=== PATIENT | female | born 1935 | race Two or more races ===

== ENCOUNTER 2020-11-30 03:34 | Inpatient (IN) | payer MEDICARE, SELFPAY ==
[2020-11-30] VITALS (11 sets, daily range): BP systolic 139–170; BP diastolic 53–78; PULSE 57–67; RESP 16–20; TEMP 36.5–36.9; O2SAT 94–100; BMI 25.0
--- NOTE | 2020-11-30 03:35 | ECHOD_ITS ---
Reason For Study: CHF Procedure This was a 2D Doppler, Color Flow transthoracic echocardiogram. Exam performed portable in patient room. Left Ventricle Normal LV size. Left ventricular systolic function is lower limits of normal. The estimated ejection fraction is 45 %. There is mild global hypokinesis of the left ventricle. Right Ventricle Normal RV size. Normal systolic function. Atria The left atrium is moderately enlarged. Normal right atrium. Mitral Valve Bileaflet diffuse mitral valve thickening. Mild (1+) eccentric mitral valve insufficiency. Tricuspid Valve Normal tricuspid valve. Mild to moderate (1-2+) tricuspid valve insufficiency. Pulmonary artery systolic pressure is 54 mmHg. Moderate pulmonary hypertension. Aortic Valve Trisinus/trileaflet aortic valve. Great Vessels Calcified aortic root. The pulmonary artery is normal size. Normal inferior vena cava. Pericardium/Pleural No pericardial effusion. Large left pleural effusion. MMode/2D Measurements & Calculations LVIDd: 4.3 cm IVSd: 1.3 cm LA dimension: 3.7 cm LVIDs: 3.1 cm LVPWd: 1.1 cm FS: 28.3 % LAV(MOD-bp): 87.1 ml LA A4 area: 25.8 cm2 RA A4 area: 14.0 cm2 LAV(MOD-bp) Indexed: 57.9 ml/m2 LAV(MOD-sp2): 85.5 ml LAV(MOD-sp4): 88.9 ml Time Measurements MV dec time: 0.24 sec Doppler Measurements & Calculations MV E max jessee: 132.7 cm/sec Med Peak E' Jessee: 5.4 cm/sec MV V2 max: 141.6 cm/sec MV A max jessee: 119.2 cm/sec E/E' med: 24.8 MV max P.0 mmHg MV E/A: 1.1 MV V2 mean: 76.8 cm/sec MV mean P.7 mmHg MV V2 VTI: 47.4 cm MV P1/2t max jessee: 143.5 cm/sec Ao V2 max: 138.0 cm/sec LV V1 max: 92.7 cm/sec MV P1/2t: 73.7 msec Ao max P.6 mmHg LV V1 max P.4 mmHg MV dec slope: 570.1 cm/sec2 MVA(P1/2t): 3.0 cm2 PA V2 max: 82.8 cm/sec TR max jessee: 346.3 cm/sec TR max P.0 mmHg ECHO/Echo Complete Interpretation Summary Normal LV size. Left ventricular systolic function is lower limits of normal. The estimated ejection fraction is 45 %. Mild (1+) eccentric mitral valve insufficiency. Mild to moderate (1-2+) tricuspid valve insufficiency. Pulmonary artery systolic pressure is 54 mmHg. Moderate pulmonary hypertension. Large left pleural effusion. Ordering Physician: Hortencia Azar Referring Physician: Sofya PCP Noted Performed By: Andrzej Farfan RCS
--- NOTE | 2020-11-30 04:00 | HP.PCM.HOS_ITS ---
HPI - General General Date of Admission: 11/30/20 Date of Service: 11/30/20 Chief Complaint: Dyspnea, worse with exertion, orthopnea. HPI Narrative The patient is a 85 y/o F w/ PMHx: Diabetes mellitus type II, HTN, HLD, ESRD on chronic peritoneal dialysis, Chronic anemia/AOCD, Hx AVM w/ GI bleed who was initially seen at [facility] ED on 11/30/20 prior to transfer to the [facility] as a direct admission on 11/30/20 as no bed availability in their region with history of ongoing progressively worsening dyspnea, worse with exertion with notable orthopnea over the last several days in addition to history of recent loose stools over the last several days without any fever or chills and no URI type symptoms. The stool was normal in appearance. [facility] at their facility was contacted per ED and recommended transfer with need for ECHO (Dr. Martinez) and possible cardiac catheterization pending enzyme trending. Upon [facility] arrival patient notes feeling improved with lessened dyspnea. She denies any associated chest pain with her recent exertional dyspnea. Patient evaluation at their ED included: VS: BP 134/93, HR 66, T 36.7, RR 24, 93% on RA CBC: WBC 8.3, Hgb 10.6, Plts 324 with unremarkable differential COVID testing: Negative BMP: Na 143, K 2.6, BUN/Cr 38/4.6 BNP: 16,974 Trop HS: 139 CXR: Moderate R pleural effusion, small L pleural effusion, evidence vascular congestion EKG: SR rate 65 with diffuse T wave flattening without acute evidence of ischemia Medications administered in the ED included: ASA 324 mg x 1, Potassium Chl 40 po and 40 IV, Lasix 40 mg IV. [facility] Medical History (Updated 11/30/20 @ 04:[address] Hortencia Azar MD) AVM (arteriovenous malformation) Chronic anemia Diabetes mellitus, type 2 ESRD (end stage renal disease) on dialysis Former tobacco use History of GI bleed HLD (hyperlipidemia) HTN (hypertension) Peritoneal dialysis catheter in place Home Medications B complex-vitamin C-folic acid [Holly-Danny] 1 tab PO DAILY 11/30/20 [History Last Taken Unknown] Lipitor 40 mg PO/SL DAILY 11/30/20 [History Last Taken Unknown] Toujeo SoloStar U-300 Insulin 14 units DAILY 11/30/20 [History Last Taken Unknown] amlodipine 5 mg PO DAILY 11/30/20 [History Last Taken Unknown] calcitriol 0.25 mcg PO DAILY 11/30/20 [History Last Taken Unknown] cholecalciferol (vitamin D3) [Vitamin D3] 25 mcg PO DAILY 11/30/20 [History Last Taken Unknown] ferrous sulfate 325 mg PO/SL TID 11/30/20 [History Last Taken Unknown] nifedipine 60 mg PO/SL DAILY 11/30/20 [History Last Taken Unknown] quinapril 40 mg PO/SL DAILY 11/30/20 [History Last Taken Unknown] sodium bicarbonate 1,300 mg PO BID 11/30/20 [History Last Taken Unknown] spironolactone 50 mg PO DAILY 11/30/20 [History Last Taken Unknown] torsemide 10 mg PO DAILY 11/30/20 [History Last Taken Unknown] Allergy/AdvReac Type Severity Reaction Status Date / Time metformin AdvReac Unknown needs Verified 11/30/20 03:34 follow-up Family History (Updated 11/30/20 @ 04:[address] Hortencia Azar MD) Mother CKD (chronic kidney disease) Father Hypertension Heart disease Surgical History (Updated 11/30/20 @ 04:[address] Hortencia Azar MD) S/P bilateral foot surgery Social History (Updated 11/30/20 @ 04:[address] Hortencia Azar MD) housing: other details: Patient lives with her daughter who is a manager international. Smoking Status: Former smoker how long ago did patient quit smoking: Quit 1982, smoked from [employer] until then, 1 ppd. alcohol intake: never substance use type: does not use ROS ROS Narrative Admission Review of Systems: CONSTITUTIONAL: No weight loss, fever, chills, + weakness or fatigue. HEENT: Eyes: No visual loss, blurred vision, double vision or yellow sclerae. Ears, Nose, Throat: No hearing loss, sneezing, congestion, runny nose or sore throat. SKIN: No rash or itching, lesions, wounds. CARDIOVASCULAR: + Orthopnea, no chest pain, chest pressure or chest discomfort, palpitations, edema, syncopal events. RESPIRATORY: + shortness of breath, No cough or sputum, wheezing, hemoptysis. GASTROINTESTINAL: + diarrhea, No anorexia, nausea, vomiting, abdominal pain, melena, BRBPR. GENITOURINARY: No dysuria, frequency, urgency or retention. NEUROLOGICAL: No headache, dizziness, syncope, paralysis, ataxia, numbness or tingling in the extremities, focal weakness, change in bowel or bladder control, seizure. MUSCULOSKELETAL: No muscle, back pain, joint pain or stiffness. HEMATOLOGIC: + anemia, bleeding or bruising. LYMPHATICS: No enlarged nodes. No history of splenectomy. PSYCHIATRIC: No history of depression or anxiety. ENDOCRINOLOGIC: No reports of sweating, cold or heat intolerance. No polyuria or polydipsia. ALLERGIES: No history of asthma, hives, eczema or rhinitis. Physical Exam Narrative Physical Examination: General: Awake, alert, oriented x 3 and cooperative, seated upright in the PCU bed in no apparent distress, notes feeling improved since initial outside ED evaluation. Skin: Normal color, normal turgor, no icterus, no cyanosis. HEENT: AT/NC, EOMI, PERRLA, MMM, no carotid bruits, + JVD noted. Lungs: Diminished, greater bases, right greater than left, mild rales bases, no obvious rhonchi or wheezing. Heart: Regular rate and rhythm; no gallop, rub audible, + SM. Abdomen: Soft, NTTP, ND, normal BS, no HSM. Extremities: No cyanosis, no clubbing, minimal bilateral ankle not markedly pitting edema. Neurological: Patient awake, alert, oriented as noted, cognitive function intact; pupils equally reactive to light and accommodation, cranial nerves II- XII grossly normal, moving all 4 extremities, no focal deficits, strength moderately global decrease secondary to acute presentation and complaints. Psychiatric: Affect appears mildly fatigued otherwise normal, no acute evidence of depressive or anxiety feelings. Assessment & Plan Assessment/Plan (1) CHF exacerbation: QUALIFIERS: Heart failure type: unspecified Qualified Code(s): I50.9 - Heart failure, unspecified (2) Elevated troponin: PLAN: The patient is a 85 y/o F w/ PMHx: Diabetes mellitus type II, HTN, HLD, ESRD on chronic peritoneal dialysis, Chronic anemia/AOCD, Hx AVM w/ GI bleed who was initially seen at [facility] ED on 11/30/20 prior to transfer to the [facility] as a direct admission on 11/30/20 as no bed availability in their region with history of ongoing progressively worsening dyspnea, worse with exertion with notable orthopnea over the last several days. 1. Acute Decompensated CHF, unclear type with elevated cardiac enzymes: Patient administered IV lasix in the ED prior to transfer, will admit as directed to PCU, maintain on cardiac telemetry obtain cardiac enzyme series, obtain serial EKGs, continue IV lasix diuresis, consult nephrology as patient is end-stage renal disease on PD, monitor I/Os, maintain on intake restriction, continue medical therapy, obtain TSH and magnesium level, obtain echocardiogram. Will monitor cardiac enzymes and if trend upward will transition to heparin drip. Pending further assessment and treatment may consider cardiology consultation. 2. Diarrhea, unclear etiology: Given CHF exacerbation will defer hydration, will obtain c diff, stool cx, will not start antibiotics at this time especially given afebrile status with no marked WC elevation or left shift, negative recent Covid testing at outside facility. If stool studies are negative will initiate antidiarrheal regimen. 3. ESRD: Patient with history of advanced renal disease on PD, will continue q HS PD (normally x 6 days per week) pending requested nephrology consultation with local flat ironer. Patient of note still does make urine per her report. 4. Hypertension: Continue home regimen including quinapril, nifedipine, adding low-dose beta-klarissa, IV Lasix as noted above, PRN hydralazine. 5. Hyperlipidemia: Continue home statin regimen. AM FLP. 6. Chronic anemia/AOCD/Fe Deficiency anemia: Recent reported hemoglobin at outside facility 10.6, stable per the report, will continue iron supplementation, trend CBC. 7. Diabetes mellitus type II: Hold oral home regimen, continue Toujeo, ADA diet, accu checks w/ ISS. 8. GERD, history of prior GI bleed with AVM: We will continue patient PPI. 9. DVT prophylaxis: SCDs, heparin however low threshold to transition to therapeutic regimen if enzymes trend upward. 10. CODE status: Patient does not have healthcare power of workers compensation defense attorney nor living will in place but has been discussing these items with her daughter and notes that it is their intention to have it set up. Discussed CODE status at length including difference between FULL code, DNR-CCA and DNR-CC status. Following discussions about the differences in these status, requested Full Code status. Advanced Care Planning Face to Face Time: 16 minutes. Charges/Coding Visit Charges Inpatient E&M: 98035 Init Hosp L3 Procedures Hospitalists Procedures: 56431 Advncd Care Plan 30 Min
--- NOTE | 2020-11-30 04:55 | PCS.PANDOC ---
PANDEMIC DOCUMENTATION INITIATED: Date: 10/19/2020 Time: 190
[2020-11-30 05:32] LABS: Troponin-I HS 62 pg/mL (3.0-54.0)
--- NOTE | 2020-11-30 06:21 | NURSING ---
Pts daughter Daniela given update on pt and aware that she is here at [facility].
[2020-11-30 06:50] LABS: Bedside Glucose 51 mg/dL (70-110)
[2020-11-30 07:06] LABS: Bedside Glucose 59 mg/dL (70-110)
[2020-11-30 07:17] LABS: Absolute Lymphocyte Count 1.16 X10^3/uL (0.83-4.51); Absolute Neutrophil Count 4.3 X10^3/uL (2.0-7.7); Basophil# 0.05 X10^3/uL; Basophil% 0.8 % (0-1); Eosinophil# 0.08 X10^3/uL; Eosinophils% 1.3 % (0-5); Hematocrit 28.1 % (37-47); Lymphocyte # 1.16 X10^3/ul (0.83-4.51); Lymphocyte % 18.9 % (19-41); Mean Corpuscular Hgb 27.8 pg (27.0-32.0); Mean Corpuscular Volume 86.7 fL (81-99); Mean Platelet Vol. 11.3 fl (6.2-12.0); Monocyte# 0.56 X10^3/uL; Monocyte% 9.1 % (0-10); NRBC Flagged by Analyzer 0 % (0-5); Neutrophil # 4.28 X10^3/uL (2.7-7.7); Neutrophil % 69.6 % (47-70); Platelet Count 273 K/mm3 (150-450); RBC Distribution Width CV 15.5 % (11.6-14.6); RBC Distribution Width SD 49.4 fl (35.1-43.9); Red Blood Count 3.24 M/mm3 (4.2-5.4); White Blood Count 6.2 K/mm3 (4.4-11.0)
[2020-11-30 07:56] LABS: Bedside Glucose 122 mg/dL (70-110)
[2020-11-30 07:59] LABS: Troponin-I HS 57 pg/mL (3.0-54.0)
[2020-11-30 08:28] LABS: ALB/GLOB Ratio 0.4 RATIO (0.9-2.4); AST(SGOT) 41 U/L (15-37); Alanine Aminotransfer ALT/SGPT 31 U/L (13-56); Albumin, Serum 1.7 g/dL (3.2-5.0); Alkaline Phosphatase 83 U/L (45-117); Anion Gap 10 (5-15); BUN 40 mg/dL (7-18); BUN/Creat Ratio 8.9 RATIO (10-20); Calcium,Total 7.6 mg/dL (8.5-10.1); Chloride 108 mmol/L (98-107); Cholesterol 133 mg/dL (200); Creatinine, Serum 4.47 mg/dL (0.55-1.02); EST Glomerular Filtration Rate 10 mL/min (>60); Est Glom Filt Rate - Afr Amer 12 mL/min (>60); Estimated Creatinine Clearance 8.46 ml/min; Globulin 4.5 g/dL (2.2-4.2); Glucose 58 mg/dL (74-106); High Density Lipoprotein 80 mg/dL; Magnesium 1.9 mg/dL (1.6-2.6); Potassium 2.5 mmol/L (3.5-5.1); Protein, Total 6.2 g/dL (6.4-8.2); Sodium Level 146 mmol/L (136-145); T4 Free Direct 1.08 ng/dL (0.76-1.46); Thyroid Stim Hormone (TSH) 6.72 uIU/mL (0.358-3.74); Triglycerides 99 mg/dL; Very Low Density Lipoprotein 20 mg/dL (5-40)
[2020-11-30] MEDS: 0.9% Saline Lock 10 ML Syringe IV ×2 (09:35→17:09)
[2020-11-30] MEDS: Spironolactone 50 MG Tablet PO (09:35)
[2020-11-30] MEDS: Ferrous Sulfate 325 MG Tablet PO (09:36)
[2020-11-30] MEDS: Heparin Injection (Vial) 5,000 UNIT/ML VIAL 5000 UNIT SC ×2 (09:36→20:35)
[2020-11-30] MEDS: Calcitriol 0.25 MCG Capsule PO (09:36)
[2020-11-30] MEDS: Vitamin B Comp W-C Capsule 1 CAP PO (09:36)
[2020-11-30] MEDS: NIFEdipine 60 MG Tablet PO (09:36)
[2020-11-30] MEDS: amLODIPine 5 MG Tablet PO (09:36)
[2020-11-30] MEDS: Furosemide 40 MG/4 ML Vial IV ×2 (09:36→17:09)
[2020-11-30] MEDS: Cholecalciferol (VIT D3) 25 MCG TABLET (1,000 UNITS) PO (09:36)
[2020-11-30] MEDS: Sodium Bicarbonate 650 MG Tablet 1300 MG PO (09:36)
[2020-11-30] MEDS: Carvedilol 3.125 MG TABLET PO ×2 (09:36→20:35)
[2020-11-30] MEDS: Lisinopril 40 MG Tablet PO (09:36)
[2020-11-30] MEDS: Aspirin E.C. 81 MG Tablet PO (09:42)
--- NOTE | 2020-11-30 10:30 | CASEMGMT ---
ASHUTOSH GOTTLIEB assessment: Face to Face with patient for initial transition planning/care coordination assessment. ASHUTOSH GOTTLIEB introduced self and role at [facility], pt voices understanding and consents to assessment. Pt is sitting up in bed in no distress. Pt is A/Ox4 and answers all questions appropriately. Care providers, pharmacy, and demographics verified/updated. Presentation: Pt was direct admit from [facility] for CHF exac, elev trop Admitting dx: CHF exac, elev trop PCP: Anna in [place] Specialists: del Prince in [place]; [place] Preferred Pharmacy: [facility] in [place] Insurance: AeR Prescription Benefit: AeMCR Living Will/HPOA: Pt states does not have LW/HPOA and declines AD info. LNOK: Daniela Cole, daughter Living Arrangements: Pt states lives with daughter, Daniela, on main level of 2 story home and states no concerns at home. Pt states is independent with ADL's. Transportation: Pt states daughter drives and states no transportation concerns. DME/HHC: Pt states has the following DME: cane, walker, grab bars, and shower chair. Pt states no need for any further DME. Pt states no hx of HHC or SNF. Pt states recently started in-home PD 6 nights/week and states her daughter assists with setting up PD. Pt states no concerns. Pt states no concerns with going home at time of discharge. Pt states is retired. Pt states does not smoke cigarettes or drink ETOH. Pt states no concerns with going home at time of discharge. CM to follow for any further discharge planning/needs. Advised pt to ask for CM if any further questions/concerns/needs arise, voices understanding. Pt Goal: Home Plan[place] ASHUTOSH GOTTLIEB
[2020-11-30] MEDS: Potassium Chloride Oral Tablet 20 MEQ 40 MEQ PO (10:37)
[2020-11-30 11:44] LABS: Troponin-I HS 55 pg/mL (3.0-54.0)
[2020-11-30 12:01] LABS: Bedside Glucose 161 mg/dL (70-110)
--- NOTE | 2020-11-30 12:01 | CON.PCM.RE_ITS ---
Assessment & Plan Assessment/Plan (1) ESRD (end stage renal disease) on dialysis: PLAN: on CCPD 5 days a week. New to dialysis since early October. Primary stationary fireman Steven Bravo at [place]. (2) CHF exacerbation: QUALIFIERS: Heart failure type: unspecified Qualified Code(s): I50.9 - Heart failure, unspecified PLAN: continue iv lasix, echo pending (3) Elevated troponin: PLAN: consider cardiology consult (4) HTN (hypertension), benign: PLAN: stable (5) DM2 (diabetes mellitus, type 2): PLAN: stable (6) Pleural effusion: PLAN: thoracentesis if needed (7) Hypokalemia: PLAN: replace as needed,stop sodium bicarbonate since bicarb level elevated at 28. (8) Anemia: PLAN: continue oral iron, hx GI bleed from AVM's HPI Consult Data Date of Consult: 11/30/20 HPI Narrative HPI Narrative: TATA SMITH, is a 85 F admitted for CHF. She was transferred from [facility] due to no bed availability there. Complains of dyspnea with exertion past several days. She denies nausea, vomiting but admits to diarrhea since she started dialysis. She started dialysis beginning of October 5 days a week with 1.8L fill volumes. COVID negative. Denied chest pain, fever or chills. She has orthopnea. She has improved leg edema. She has a history of anemia, GIB from AVMs in the past, DM2, HTN, HPL and ESRD suspect due to diabetes, hypertension. She underwent kidney biopsy 2 weeks ago, results unknown. She lives with her dtr in [place]. She denies history of heart dise ase or CHF in the past. no bpm architect. She is on diuretics at home. Her primary stationary fireman is Dr. Bravo at [place]. [facility] Medical History (Updated 11/30/20 @ 12:[address] Kamini Thomason DO) Anemia AVM (arteriovenous malformation) Chest pain Chronic anemia Diabetes Diabetes mellitus, type 2 Dialysis patient ESRD (end stage renal disease) on dialysis Former smoker Former tobacco use GERD (gastroesophageal reflux disease) History of GI bleed HLD (hyperlipidemia) HTN (hypertension) Hypertension Kidney disease Osteoporosis Wears hearing aid in both ears Home Medications B complex-vitamin C-folic acid [Holly-Danny] 1 tab PO DAILY 11/30/20 [History Last Taken Unknown] Lipitor 40 mg PO/SL DAILY 11/30/20 [History Last Taken Unknown] Bridgeruralph WattsoStar U-300 Insulin 14 units DAILY 11/30/20 [History Last Taken Unknown] amlodipine 5 mg PO DAILY 11/30/20 [History Last Taken Unknown] calcitriol 0.25 mcg PO DAILY 11/30/20 [History Last Taken Unknown] cholecalciferol (vitamin D3) [Vitamin D3] 25 mcg PO DAILY 11/30/20 [History Last Taken Unknown] ferrous sulfate 325 mg PO/SL TID 11/30/20 [History Last Taken Unknown] nifedipine 60 mg PO/SL DAILY 11/30/20 [History Last Taken Unknown] quinapril 40 mg PO/SL DAILY 11/30/20 [History Last Taken Unknown] sodium bicarbonate 1,300 mg PO BID 11/30/20 [History Last Taken Unknown] spironolactone 50 mg PO DAILY 11/30/20 [History Last Taken Unknown] torsemide 10 mg PO DAILY 11/30/20 [History Last Taken Unknown] Allergy/AdvReac Type Severity Reaction Status Date / Time metformin AdvReac Unknown needs Verified 11/30/20 03:34 follow-up Family History (Updated 11/30/20 @ 12:[address] Kamini Thomason DO) Mother CKD (chronic kidney disease) Father Hypertension Heart disease Other Diabetes Surgical History (Updated 11/30/20 @ 12:[address] Kamini Thomason DO) Peritoneal dialysis catheter in place S/P bilateral foot surgery Social History (Updated 11/30/20 @ 04:[address] Hortencia Azar MD) housing: other details: Patient lives with her daughter who is a district engineer. Smoking Status: Former smoker how long ago did patient quit smoking: Quit 1982, smoked from [employer] [place] then, 1 ppd. alcohol intake: never substance use type: does not use ROS Constitutional Constitutional: Reports weakness; Denies chills or fever(s) Eyes Eyes: Denies blurry vision ENT HEENT: Denies epistaxis Cardiovascular Cardiovascular: Reports dyspnea on exertion and leg edema; Denies chest pain or syncope Respiratory/Chest Respiratory/Chest: Reports dyspnea on exertion; Denies hemoptysis Gastrointestinal Gastrointestinal: Reports diarrhea, rectal bleeding and other Details: hx GI bleed ; Denies abdominal pain, anorexia, hematemesis, hematochezia, melena, nausea or vomiting Genitourinary Genitourinary: Denies difficulty urinating or dysuria Musculoskeletal Musculoskeletal: Denies abnormal gait Integumentary Integumentary: Denies rash Neurologic Neurologic: Reports weakness; Denies tremor(s) Psychiatric Psychiatric: Denies anxiety or depression Hematologic/Lymphatic Hematologic/Lymphatic: Reports anemia Physical Exam Const alert, oriented x3 and no apparent distress Resp Auscultation: crackles right (decreased bs on left) Cardio regular rate Cardio Narrative: murmur GI non-tender and non-distended GI Narrative: PD catheter Palpation: soft no CVA tenderness Skin no rashes or lesions noted and no wounds Neuro Sensorium / Orientation: awake and alert Psych cooperative Lab / Micro Data Result Diagrams: 11/30/20 06:50 11/30/20 06:50 Labs: Laboratory Results - last 24 hr 11/30/20 04:55: Troponin I High Sens 62 H 11/30/20 06:45: POC Glucose 51 L 11/30/20 06:50: WBC 6.2, RBC 3.24 L, Hgb 9.0 L, Hct 28.1 L, MCV 86.7, MCH 27.8, MCHC 32.0, RDW Std Deviation 49.4 H, RDW Coeff of Nuha 15.5 H, Plt Count 273, MPV 11.3, Immature Gran % (Auto) 0.300, Neut % (Auto) 69.6, Lymph % (Auto) 18.9 L, [place] % (Auto) 9.1, Eos % (Auto) 1.3, Baso % (Auto) 0.8, Absolute Neuts (auto) 4.3, Absolute Lymphs (auto) 1.16, Nucleated RBC % 0 11/30/20 06:50: Sodium 146 H, Potassium 2.5 L*, Chloride 108 H, Carbon Dioxide 28.0, Anion Gap 10, BUN 40 H, Creatinine 4.47 H, Estim Creat Clear Calc 8.46, Est GFR (MDRD) Af Amer 12 L, Est GFR (MDRD) Non-Af 10 L, BUN/Creatinine Ratio 8.9 L, Glucose 58 L, Calcium 7.6 L, Phosphorus 4.0, Magnesium 1.9, Total Bilirubin 0.40, AST 41 H, ALT 31, Alkaline Phosphatase 83, Total Protein 6.2 L, Albumin 1.7 L, Globulin 4.5 H, Albumin/Globulin Ratio 0.4 L, Triglycerides 99, Cholesterol 133, LDL Cholesterol 33, VLDL Cholesterol 20, HDL Cholesterol 80, TSH 6.72 H, Free T4 1.08 11/30/20 06:50: Troponin I High Sens 57 H 11/30/20 06:58: POC Glucose 59 L 11/30/20 07:52: POC Glucose 122 H 11/30/20 11:13: Troponin I High Sens 55 H
[2020-11-30] MEDS: Insulin Lispro 100 UNIT/ML INSULN.PEN SC (12:04)
--- NOTE | 2020-11-30 13:11 | PCM.PN.HOSP ---
Subjective Subjective Breathing well. Became more short of breath even at rest. Has been on PD since October. Objective Data Objective Data Vital Signs: Vital Signs Temp Pulse Resp BP Pulse Ox 36.5 C L 65 18 170/53 H 94 11/30/20 09:30 11/30/20 09:30 11/30/20 09:30 11/30/20 09:30 11/30/20 09:58 Oxygen Flow Rate (L/min) 2 Oxygen Delivery Method Nasal Cannula Weight: 56.2 kg Body Mass Index (BMI) 25.0 Intake & Output: Intake and Output for Last 24 Hours 11/28/20 11/29/20 11/30/20 23:59 23:59 23:59 Intake Total 50 / 50 Balance 50 / 50 Lab / Micro Data Result Diagrams: 11/30/20 06:50 11/30/20 06:50 Labs: Laboratory Results - last 24 hr 11/30/20 04:55: Troponin I High Sens 62 H 11/30/20 06:45: POC Glucose 51 L 11/30/20 06:50: WBC 6.2, RBC 3.24 L, Hgb 9.0 L, Hct 28.1 L, MCV 86.7, MCH 27.8, MCHC 32.0, RDW Std Deviation 49.4 H, RDW Coeff of Nuha 15.5 H, Plt Count 273, MPV 11.3, Immature Gran % (Auto) 0.300, Neut % (Auto) 69.6, Lymph % (Auto) 18.9 L, Kings % (Auto) 9.1, Eos % (Auto) 1.3, Baso % (Auto) 0.8, Absolute Neuts (auto) 4.3, Absolute Lymphs (auto) 1.16, Nucleated RBC % 0 11/30/20 06:50: Sodium 146 H, Potassium 2.5 L*, Chloride 108 H, Carbon Dioxide 28.0, Anion Gap 10, BUN 40 H, Creatinine 4.47 H, Estim Creat Clear Calc 8.46, Est GFR (MDRD) Af Amer 12 L, Est GFR (MDRD) Non-Af 10 L, BUN/Creatinine Ratio 8.9 L, Glucose 58 L, Calcium 7.6 L, Phosphorus 4.0, Magnesium 1.9, Total Bilirubin 0.40, AST 41 H, ALT 31, Alkaline Phosphatase 83, Total Protein 6.2 L, Albumin 1.7 L, Globulin 4.5 H, Albumin/Globulin Ratio 0.4 L, Triglycerides 99, Cholesterol 133, LDL Cholesterol 33, VLDL Cholesterol 20, HDL Cholesterol 80, TSH 6.72 H, Free T4 1.08 11/30/20 06:50: Troponin I High Sens 57 H 11/30/20 06:58: POC Glucose 59 L 11/30/20 07:52: POC Glucose 122 H 11/30/20 11:13: Troponin I High Sens 55 H 11/30/20 11:56: POC Glucose 161 H Radiography Diagnostic Testing: Radiology Impression Echocardiogram 11/30/20 03:35 Interpretation Summary Normal LV size. Left ventricular systolic function is lower limits of normal. The estimated ejection fraction is 45 %. Mild (1+) eccentric mitral valve insufficiency. Mild to moderate (1-2+) tricuspid valve insufficiency. Pulmonary artery systolic pressure is 54 mmHg. Moderate pulmonary hypertension. Large left pleural effusion. Ordering Physician: Hortencia Azar Referring Physician: No PCP Noted Performed By: Andrzej Farfan RCS Physical Exam Const alert Constitutional Narrative: on room air. no respiratory distress. no conversational dyspnea. Resp normal respiratory effort, no use of accessory muscles and clear to auscultation bilaterally Cardio Cardio Narrative: few crackles in bases. GI normal to inspection, nondistended, normoactive bowel sounds, soft to palpation, non-tender and non-distended Assessment & Plan Assessment/Plan (1) CHF exacerbation: QUALIFIERS: Heart failure type: unspecified Qualified Code(s): I50.9 - Heart failure, unspecified (2) Elevated troponin: PLAN: The patient is a 85 y/o F w/ PMHx: Diabetes mellitus type II, HTN, HLD, ESRD on chronic peritoneal dialysis, Chronic anemia/AOCD, Hx AVM w/ GI bleed who was initially seen at [facility] ED on 11/30/20 prior to transfer to the [facility] as a direct admission on 11/30/20 as no bed availability in their region with history of ongoing progressively worsening dyspnea, worse with exertion with notable orthopnea over the last several days. 1. Acute HFrEF EF 45% complicated by ESRD and moderate pulmonary HTN on IV furosemide continue lisinopril,carvedilol 2. Elevated troponin slightly elevated, but likely skewed by ESRD check records from [facility] and Dr. Martinez, her molasses feed mixer 3. ESRD on PD nephrology on consult 4. Diarrhea chronic intermittent no recent abx, so doubt Cdiff add loperamide 5. Hypokalemia replace monitor 6. Anemia of chronic disease likely stable monitor no need for TF at this time 7. VTE propylaxis: SQ heparin Charges/Coding Procedures Hospitalists Procedures: Other Procedure - See Report (non billable rounding)
[2020-11-30 16:45] LABS: Bedside Glucose 127 mg/dL (70-110)
--- NOTE | 2020-11-30 16:46 | NURSING ---
This RN reviewed all SN charting
[2020-11-30] MEDS: Atorvastatin Calcium 40 MG Tablet PO (20:35)
--- NOTE | 2020-11-30 22:40 | DIALYSIS ---
CCPD treatment initiated using aseptic technique at 2235, initial drain and fill completed, initial effluent fluid (2mL), LLQ PD catheter dressing changed, site benign
[2020-11-30 23:05] LABS: Bedside Glucose 135 mg/dL (70-110)
[2020-12-01] VITALS (10 sets, daily range): BP systolic 150–179; BP diastolic 61–101; PULSE 54–64; RESP 16–18; TEMP 36.6–37; O2SAT 91–95
[2020-12-01] MEDS: Insulin Lispro 100 UNIT/ML INSULN.PEN SC ×2 (06:29→21:23)
[2020-12-01 06:36] LABS: Bedside Glucose 187 mg/dL (70-110)
[2020-12-01 07:24] LABS: Albumin, Serum 1.7 g/dL (3.2-5.0); BUN 40 mg/dL (7-18); BUN/Creat Ratio 8.7 RATIO (10-20); Calcium,Total 8.2 mg/dL (8.5-10.1); Chloride 106 mmol/L (98-107); EST Glomerular Filtration Rate 10 mL/min (>60); Est Glom Filt Rate - Afr Amer 12 mL/min (>60); Estimated Creatinine Clearance 8.25 ml/min; Glucose 187 mg/dL (74-106); Potassium 3.3 mmol/L (3.5-5.1); Sodium Level 143 mmol/L (136-145)
[2020-12-01 08:11] LABS: Bedside Glucose 165 mg/dL (70-110)
--- NOTE | 2020-12-01 08:30 | PN.HOSP_ITS ---
Subjective Subjective No events overnight. No chest pain. No shortness of breath. Objective Data Objective Data Vital Signs: Vital Signs Temp Pulse Resp BP Pulse Ox 36.7 C 57 L 18 153/96 H 95 12/01/20 04:10 12/01/20 06:00 12/01/20 04:10 12/01/20 04:10 12/01/20 04:10 Oxygen Flow Rate (L/min) 2 Oxygen Delivery Method Room Air Weight: 56.4 kg Body Mass Index (BMI) 25.0 Intake & Output: Intake and Output for Last 24 Hours 11/29/20 11/30/20 12/01/20 23:59 23:59 23:59 Intake Total 50 / 50 500 / 500 Output Total 1738 / 1738 Balance 50 / -450 -1238 / -1238 Lab / Micro Data Result Diagrams: 11/30/20 06:50 12/01/20 05:10 Labs: Laboratory Results - last 24 hr 11/30/20 11:13: Troponin I High Sens 55 H 11/30/20 11:56: POC Glucose 161 H 11/30/20 16:36: POC Glucose 127 H 11/30/20 23:02: POC Glucose 135 H 12/01/20 05:10: Sodium 143, Potassium 3.3 L, Chloride 106, Carbon Dioxide 29.0, BUN 40 H, Creatinine 4.60 H, Estim Creat Clear Calc 8.25, Est GFR (MDRD) Af Amer 12 L, Est GFR (MDRD) Non-Af 10 L, BUN/Creatinine Ratio 8.7 L, Glucose 187 H, Calcium 8.2 L, Phosphorus 4.0, Albumin 1.7 L 12/01/20 06:28: POC Glucose 187 H 12/01/20 08:01: POC Glucose 165 H Micro: Microbiology 11/30/20 11:50 Stool Enteric Bacteriology - Final 11/30/20 11:50 Stool C. difficile DNA Amplification - Final Radiography Diagnostic Testing: Radiology Impression Echocardiogram 11/30/20 03:35 Interpretation Summary Normal LV size. Left ventricular systolic function is lower limits of normal. The estimated ejection fraction is 45 %. Mild (1+) eccentric mitral valve insufficiency. Mild to moderate (1-2+) tricuspid valve insufficiency. Pulmonary artery systolic pressure is 54 mmHg. Moderate pulmonary hypertension. Large left pleural effusion. Ordering Physician: Hortencia Azar Referring Physician: No PCP Noted Performed By: Andrzej Farfan RCS Physical Exam Const alert Constitutional Narrative: seen on PD. HEENT head/scalp atraumatic Head and Scalp: normocephalic Resp normal respiratory effort Resp Narrative: bibasilar crackles Cardio regular rate, regular rhythm, S1 normal heart sound and S2 normal heart sound GI normal to inspection, nondistended, normoactive bowel sounds, soft to palpation, non-tender and non-distended Extremity normal to inspection Skin no rashes or lesions noted and no wounds Neuro Sensorium / Orientation: awake and alert Psych affect normal Assessment & Plan Assessment/Plan (1) CHF exacerbation: QUALIFIERS: Heart failure type: unspecified Qualified Code(s): I50.9 - Heart failure, unspecified (2) Elevated troponin: PLAN: The patient is a 85 y/o F w/ PMHx: Diabetes mellitus type II, HTN, HLD, ESRD on chronic peritoneal dialysis, Chronic anemia/AOCD, Hx AVM w/ GI bleed who was initially seen at [facility] ED on 11/30/20 prior to transfer to the [facility] as a direct admission on 11/30/20 as no bed availability in their region with history of ongoing progressively worsening dyspnea, worse with exertion with notable orthopnea over the last several days. 1. Acute HFrEF * EF 45% * complicated by ESRD and moderate pulmonary HTN * on IV furosemide * continue lisinopril,carvedilol * no prior echo available. * pt has never seen freelance writer before (Dr. Martinez was contact through [facility] and advised transfer and possible LHC) * consult cardiology, dw Dr. Erazo. 2. Elevated troponin * slightly elevated, but may be skewed by ESRD * reviewed records from [facility], no prior cardiac work up, she has never seen a freelance writer before. 3. Pleural effusion * reviewed records from [facility], have been present since May, but noted to be bigger. No disc available to review. Will check CXR here * discussed possibility of thoracentesis with patient. 4. ESRD * on PD * nephrology on consult 5. Diarrhea * chronic * intermittent. ?IBS? * Cdiff, enterir panel negative * add loperamide 6. Hypokalemia * replace * monitor 7. Anemia of chronic disease * likely stable * no need for TF at this time 87. VTE propylaxis: SQ heparin Charges/Coding Visit Charges Inpatient E&M: 91389 Subs Hosp L3
--- NOTE | 2020-12-01 08:38 | DIALYSIS ---
CCPD tx completed. Net UF -1063ml. Effluent clear pale yellow. Pt w/o complaint this AM. See flow record for tx data.
--- NOTE | 2020-12-01 09:20 | PCM.PN.REN ---
Subjective Subjective tolerated PD last night without issues. UF 1063cc on dialysis. Potassium improving with supplement. Still with dyspnea going to BR. Objective Data Objective Data Vital Signs: Vital Signs Temp Pulse Resp BP Pulse Ox 98.1 F 62 18 150/92 H 91 12/01/20 08:37 12/01/20 08:37 12/01/20 08:37 12/01/20 08:37 12/01/20 07:40 Oxygen Flow Rate (L/min) 2 Oxygen Delivery Method Room Air Weight: 56.4 kg Body Mass Index (BMI) 25.0 Intake & Output: Intake and Output for Last 24 Hours 11/29/20 11/30/20 12/01/20 23:59 23:59 23:59 Intake Total 50 / 50 500 / 500 Output Total 3864 / 3864 Balance 50 / -450 -3364 / -3364 Lab / Micro Data Result Diagrams: 11/30/20 06:50 12/01/20 05:10 Labs: Laboratory Results - last 24 hr 11/30/20 11:13: Troponin I High Sens 55 H 11/30/20 11:56: POC Glucose 161 H 11/30/20 16:36: POC Glucose 127 H 11/30/20 23:02: POC Glucose 135 H 12/01/20 05:10: Sodium 143, Potassium 3.3 L, Chloride 106, Carbon Dioxide 29.0, BUN 40 H, Creatinine 4.60 H, Estim Creat Clear Calc 8.25, Est GFR (MDRD) Af Amer 12 L, Est GFR (MDRD) Non-Af 10 L, BUN/Creatinine Ratio 8.7 L, Glucose 187 H, Calcium 8.2 L, Phosphorus 4.0, Albumin 1.7 L 12/01/20 06:28: POC Glucose 187 H 12/01/20 08:01: POC Glucose 165 H Micro: Microbiology 11/30/20 11:50 Stool Enteric Bacteriology - Final 11/30/20 11:50 Stool C. difficile DNA Amplification - Final Radiography Diagnostic Testing: Radiology Impression Echocardiogram 11/30/20 03:35 Interpretation Summary Normal LV size. Left ventricular systolic function is lower limits of normal. The estimated ejection fraction is 45 %. Mild (1+) eccentric mitral valve insufficiency. Mild to moderate (1-2+) tricuspid valve insufficiency. Pulmonary artery systolic pressure is 54 mmHg. Moderate pulmonary hypertension. Large left pleural effusion. Ordering Physician: Hortencia Azar Referring Physician: No PCP Noted Performed By: Andrzej Farfan RCS Physical Exam Const alert and oriented x3 Resp clear to auscultation bilaterally Cardio regular rate GI non-tender and non-distended Palpation: soft Neuro Sensorium / Orientation: awake and alert Psych cooperative Assessment & Plan Assessment/Plan (1) ESRD (end stage renal disease) on dialysis: PLAN: on CCPD 5 days a week. Continue same rx for tonight, 2.5% dianeal x4 1.8L fill volume. 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 (2) CHF exacerbation: QUALIFIERS: Heart failure type: unspecified Qualified Code(s): I50.9 - Heart failure, unspecified PLAN: continue iv lasix, echo EF 45%. (3) HTN (hypertension), benign: PLAN: stable (4) DM2 (diabetes mellitus, type 2): PLAN: stable (5) Pleural effusion: PLAN: cxr (6) Hypokalemia: PLAN: replace as needed,stop sodium bicarbonate since bicarb level elevated at 28. (7) Anemia: PLAN: continue oral iron, hx GI bleed from AVM's
--- NOTE | 2020-12-01 09:31 | RAD_ITS ---
STUDY: X-RAY CHEST REASON FOR EXAM: Female, 85 years old. Pleural effusion TECHNIQUE: PA and lateral views of the chest. COMPARISON: None. FINDINGS: EKG electrodes are seen. Moderate size left pleural effusion with left basilar atelectasis and/or infiltrate. Mild increased markings at the right lung base. Normal size heart. Normal mediastinum and robin. Normal visualized pulmonary arteries. There is atherosclerotic calcification of the aortic arch with tortuosity. Normal visualized thoracic spine. Normal visualized ribs, clavicles, and shoulders. There is no demonstrated abnormality of the visualized soft tissue structures of the upper abdomen. RAD/Chest PA and Lateral IMPRESSION: Moderate size left pleural effusion with left basilar atelectasis and/or infiltrate. Electronically Signed: Nomi Parish MD at 11:37 EDT , Service support ,
[2020-12-01] MEDS: Calcitriol 0.25 MCG Capsule PO (09:53)
[2020-12-01] MEDS: Carvedilol 3.125 MG TABLET PO ×2 (09:53→21:24)
[2020-12-01] MEDS: Cholecalciferol (VIT D3) 25 MCG TABLET (1,000 UNITS) PO (09:53)
[2020-12-01] MEDS: Furosemide 40 MG/4 ML Vial IV ×2 (09:54→18:05)
[2020-12-01] MEDS: Heparin Injection (Vial) 5,000 UNIT/ML VIAL 5000 UNIT SC ×2 (09:54→21:24)
[2020-12-01] MEDS: Vitamin B Comp W-C Capsule 1 CAP PO (09:54)
[2020-12-01] MEDS: Aspirin E.C. 81 MG Tablet PO (09:54)
[2020-12-01] MEDS: amLODIPine 5 MG Tablet PO (09:54)
[2020-12-01] MEDS: NIFEdipine 60 MG Tablet PO (09:54)
[2020-12-01] MEDS: Ferrous Sulfate 325 MG Tablet PO ×3 (09:54→17:09)
[2020-12-01] MEDS: Spironolactone 50 MG Tablet PO (09:54)
[2020-12-01] MEDS: Lisinopril 40 MG Tablet PO (09:54)
[2020-12-01] MEDS: Potassium Chloride Oral Tablet 20 MEQ 40 MEQ PO (10:05)
--- NOTE | 2020-12-01 10:16 | NURSING ---
correction to uf from dialysis is 1063 only. the entered 1238 previous shift not correct. extra 175 remained that is off as was not taken off.
[2020-12-01] MEDS: Glucerna Shake 120 ML LIQUID PO ×2 (12:12→17:09)
[2020-12-01 12:20] LABS: Bedside Glucose 140 mg/dL (70-110)
--- NOTE | 2020-12-01 16:41 | CON.PCM.CA_ITS ---
Assessment & Plan Assessment/Plan (1) Elevated troponin: PLAN: The patient does have elevated troponin I levels from the outside hospital as well as at [facility] potentially compatible with a non-ST segment elevation PA. However it is not clear at this time that this represents a primary acute coronary syndrome event versus being related to a type II event being brought out by her underlying pulmonary and renal conditions. At the present time she appears without any acute coronary syndrome symptoms. Her ECG does not appear to demonstrate any acute ECG changes. She can continue to be observed and continue medical therapy as deemed appropriate as she goes through noncardiac evaluation based upon the underlying left pleural effusion and her renal insufficiency/failure. As her clinical course progresses she may need to be considered for further evaluation with diagnostic cardiac catheterization to evaluate for any obvious underlying significant CAD that would be contributing to her findings and warrant further evaluation and care. (2) Pleural effusion: PLAN: The patient has a large left pleural effusion. It is concerning that it is mainly left-sided. Being left-sided this does raise concerns of noncardiovascular etiologies as well. This has been discussed with the [facility] hospital staff. It would not be unreasonable to consider thoracentesis to assist with symptomatic improvement as well as diagnostic evaluation. (3) HLD (hyperlipidemia): QUALIFIERS: Hyperlipidemia type: unspecified Qualified Code(s): E78.5 - Hyperlipidemia, unspecified PLAN: The patient should continue risk factor evaluation care as deemed appropriate. (4) HTN (hypertension), benign: PLAN: Her blood pressure can be followed with her medicines adjusted accordingly taking into consideration her renal insufficiency (5) DM2 (diabetes mellitus, type 2): PLAN: She will continue evaluation care per internal medicine. (6) ESRD (end stage renal disease) on dialysis: PLAN: She will continue evaluation care per internal medicine and nephrology. (7) Hypokalemia: PLAN: Her electrolytes will need to be monitored and corrected. (8) Anemia: PLAN: There is a history of chronic anemia which may be related to her renal insufficiency. However she may need to be monitored for any obvious other etiologies that warrant further evaluation care. Addt'l Comments Overall, at the present time, she will continue to be observed, she will continue medical therapy as deemed appropriate, she will proceed with further evaluation of her left pleural effusion. Over time she can be considered for further evaluation with diagnostic cardiac catheterization as deemed appropriate. The above was discussed with the patient with her daughter present. They were agreeable to this approach. The patient's case was discussed with Dr. Solitario and Dr. Thomason. This note was generated using a voice recognition system and there may be incorrect words, spelling or punctuation that were not noted when reviewing the office note prior to saving. HPI Consult Data Date of Consult: 12/01/20 HPI Narrative HPI Narrative: TATA SMITH, is a 85 year old female who presents for cardiovascular consultation based upon concerns of abnormal cardiac enzymes compatible with a non-ST segment elevation PA and a left-sided pleural effusion superimposed upon a history of hyperlipidemia, hypertension, diabetes mellitus, renal insufficiency, now on chronic peritoneal dialysis, and chronic anemia. According to the patient, and her daughter (and [facility] customer response representative) the patient experienced COVID-19 and following her COVID- 19 she had progressive decline of her renal function. Her daughter states that a renal biopsy was performed which suggested her declining renal function was related to her diabetes mellitus. She initiated peritoneal dialysis approximately 2 months ago. She states after that her diuretics were decreased. Since that the patient has been noticing increasing shortness of breath/dyspnea and states she has had waxing and waning lower extremity peripheral pitting joshua a. She does not recall any ongoing chest discomfort nor she had any obvious ongoing nausea, emesis, or diaphoresis. There has been no report of near syncope or syncope. Based upon her ongoing concerns she was evaluated at [facility] in [place], [place]. She was found to have abnormal cardiac enzyme levels, an ECG that demonstrated sinus rhythm with a question of a septal PA of indeterminate age, a chest x-ray which reported a left pleural effusion, and other laboratory studies which suggested hypokalemia as well as documenting her renal insufficiency. She was subsequently transferred to [facility] based upon lack of bed availability at the aforementioned hospital for further evaluation and care. Here her troponin I levels have been subtly to mildly elevated, her ECG is demonstrated sinus rhythm with no acute ECG changes, and a follow-up chest x-ray demonstrated a large left pleural effusion. She also underwent a transthoracic echocardiogram with the results as noted below. [facility] Medical History (Updated 12/01/20 @ 16:[address] Paolo Erazo MD) Anemia AVM (arteriovenous malformation) Chest pain Chronic anemia Diabetes Diabetes mellitus, type 2 Dialysis patient ESRD (end stage renal disease) on dialysis Former smoker Former tobacco use GERD (gastroesophageal reflux disease) History of GI bleed HLD (hyperlipidemia) HLD (hyperlipidemia) HTN (hypertension) Hypertension Kidney disease Osteoporosis Wears hearing aid in both ears Home Medications B complex-vitamin C-folic acid [Holly-Danny] 1 tab PO DAILY 11/30/20 [History Last Taken Unknown] Lipitor 40 mg PO/SL DAILY 11/30/20 [History Last Taken Unknown] Tougiselleo SoloStar U-300 Insulin 14 units DAILY 11/30/20 [History Last Taken Unknown] amlodipine 5 mg PO DAILY 11/30/20 [History Last Taken Unknown] calcitriol 0.25 mcg PO DAILY 11/30/20 [History Last Taken Unknown] cholecalciferol (vitamin D3) [Vitamin D3] 25 mcg PO DAILY 11/30/20 [History Last Taken Unknown] ferrous sulfate 325 mg PO/SL TID 11/30/20 [History Last Taken Unknown] nifedipine 60 mg PO/SL DAILY 11/30/20 [History Last Taken Unknown] quinapril 40 mg PO/SL DAILY 11/30/20 [History Last Taken Unknown] sodium bicarbonate 1,300 mg PO BID 11/30/20 [History Last Taken Unknown] spironolactone 50 mg PO DAILY 11/30/20 [History Last Taken Unknown] torsemide 10 mg PO DAILY 11/30/20 [History Last Taken Unknown] Allergy/AdvReac Type Severity Reaction Status Date / Time metformin AdvReac Unknown needs Verified 11/30/20 03:34 follow-up Family History (Updated 11/30/20 @ 12:[address] Kamini Thomason DO) Mother CKD (chronic kidney disease) Father Hypertension Heart disease Other Diabetes Surgical History (Updated 11/30/20 @ 12:[address] Kamini Thomason DO) Peritoneal dialysis catheter in place S/P bilateral foot surgery Social History (Updated 11/30/20 @ 04:[address] Hortencia Azar MD) housing: other details: Patient lives with her daughter who is a customer response representative. Smoking Status: Former smoker how long ago did patient quit smoking: Quit 1982, smoked from onset college until then, 1 ppd. alcohol intake: never substance use type: does not use ROS Constitutional Constitutional: Reports as per HPI Eyes Eyes: Reports as per HPI ENT HEENT: Reports as per HPI Cardiovascular Cardiovascular: Reports dyspnea Respiratory/Chest Respiratory/Chest: Reports dyspnea Gastrointestinal Gastrointestinal: Reports as per HPI Genitourinary Genitourinary: Reports as per HPI Musculoskeletal Musculoskeletal: Reports as per HPI Integumentary Integumentary: Reports as per HPI Neurologic Neurologic: Reports as per HPI Physical Exam Const alert, oriented x3 and no apparent distress Orientation / Consciousness: awake HEENT normocephalic, head/scalp atraumatic and hearing grossly normal bilaterally Eyes PERRL, EOMs intact bilaterally and conjunctivae normal Neck full ROM, supple and no JVD Resp Auscultation: diminished lung sounds left lower and upper Cardio regular rate, regular rhythm, S1 normal heart sound and S2 normal heart sound GI normal to inspection, nondistended, normoactive bowel sounds Extremity no pedal edema Skin no rashes or lesions noted Neuro oriented x3, moves all extremities, no focal motor deficits and no sensory deficits noted Psych mental status grossly normal Procedure Criteria Type of Procedure Procedure Type: Elective Elective Risks - COVID COVID Risk Discussion: The surgeon/proceduralist and patient have discussed in detail the risk of exposure to and/or potential harm posed by the COVID-19 virus with having a surgery/procedure at this time versus the risk of delaying the surgery/procedure. It is not possible to know either the risk of delaying the surgery or procedure or chance of getting an infection with perfect accuracy, but a joint decision was made between the patient and the surgeon/proceduralist to proceed at this time with the scheduled surgery/procedure as indicated on the consent form. Objective Data Vital Signs: Vital Signs Temp Pulse Resp BP Pulse Ox 97.9 F 64 16 179/61 H 94 12/01/20 12:00 12/01/20 16:24 12/01/20 12:00 12/01/20 12:00 12/01/20 12:00 Oxygen Flow Rate (L/min) 2 Oxygen Delivery Method Room Air Weight: 124 lb 5.451 oz Body Mass Index (BMI) 25.0 Intake & Output: Intake and Output for Last 24 Hours 11/29/20 11/30/20 12/01/20 23:59 23:59 23:59 Intake Total 50 / 50 500 / 500 Output Total 3864 / 3864 Balance 50 / -450 -3364 / -3364 Lab / Micro Data Result Diagrams: 11/30/20 06:50 12/01/20 05:10 Labs: Laboratory Results - last 24 hr 11/30/20 16:36: POC Glucose 127 H 11/30/20 23:02: POC Glucose 135 H 12/01/20 05:10: Sodium 143, Potassium 3.3 L, Chloride 106, Carbon Dioxide 29.0, BUN 40 H, Creatinine 4.60 H, Estim Creat Clear Calc 8.25, Est GFR (MDRD) Af Amer 12 L, Est GFR (MDRD) Non-Af 10 L, BUN/Creatinine Ratio 8.7 L, Glucose 187 H, Calcium 8.2 L, Phosphorus 4.0, Albumin 1.7 L 12/01/20 06:28: POC Glucose 187 H 12/01/20 08:01: POC Glucose 165 H 12/01/20 12:07: POC Glucose 140 H Micro: Microbiology 11/30/20 11:50 Stool Enteric Bacteriology - Final 11/30/20 11:50 Stool C. difficile DNA Amplification - Final Cardiology Labs/Tests 12/01/20 05:10: Sodium 143, Potassium 3.3 L, Chloride 106, Carbon Dioxide 29.0, BUN 40 H, Creatinine 4.60 H, Est GFR (MDRD) Af Amer 12 L, Est GFR (MDRD) Non-Af 10 L, BUN/Creatinine Ratio 8.7 L, Glucose 187 H, Calcium 8.2 L, Phosphorus 4.0 Rhythm: Sinus rhythm EKG: As noted above ECHO: January,: Outside hospital: Reported as demonstrating normal left ventricular systolic function; moderate left atrial enlargement; mild mitral valve thickening 11-30-2020: [facility]: Interpretation Summary Normal LV size. Left ventricular systolic function is lower limits of normal. The estimated ejection fraction is 45 %. Mild (1+) eccentric mitral valve insufficiency. Mild to moderate (1-2+) tricuspid valve insufficiency. Pulmonary artery systolic pressure is 54 mmHg. Moderate pulmonary hypertension. Large left pleural effusion. Stress Test: January,: Outside hospital: Pharmacologic stress nuclear imaging study: Reported as demonstrating no evidence of myocardial ischemia/infarction with a gated LVEF of 63% Radiography Diagnostic Testing: Radiology Impression Chest X-Ray 12/01/20 09:31 IMPRESSION: Moderate size left pleural effusion with left basilar atelectasis and/or infiltrate. Electronically Signed: Nomi Parish MD at 11:37 EDT , Service support ,
--- NOTE | 2020-12-01 20:58 | BH.SGPN.TEST ---
Group Topic: [] # of Participants: [] Goal of Group: [] Staff Interventions: [] CCPD tx initated using 2 bags 2.5% Dextrose. All previous orders continued. Initial effluent clear pale yellow. Exit site dressing changed, site benign. See flow record for tx data.
[2020-12-01] MEDS: Atorvastatin Calcium 40 MG Tablet PO (21:24)
[2020-12-01 21:31] LABS: Bedside Glucose 146 mg/dL (70-110)
[2020-12-01 22:15] LABS: Bedside Glucose 162 mg/dL (70-110)
[2020-12-02] VITALS (14 sets, daily range): BP systolic 123–179; BP diastolic 39–68; PULSE 57–74; RESP 16–18; TEMP 36.5–36.8; O2SAT 92–100
[2020-12-02 05:39] LABS: Absolute Lymphocyte Count 1.34 X10^3/uL (0.83-4.51); Absolute Neutrophil Count 4.5 X10^3/uL (2.0-7.7); Basophil# 0.08 X10^3/uL; Basophil% 1.2 % (0-1); Eosinophils% 2.9 % (0-5); Hematocrit 29.9 % (37-47); Hemoglobin 9.3 g/dL (12.0-15.0); Lymphocyte # 1.34 X10^3/ul (0.83-4.51); Lymphocyte % 19.5 % (19-41); Mean Corp Hgb Conc 31.1 g/dL (32-36); Mean Corpuscular Hgb 27.6 pg (27.0-32.0); Mean Corpuscular Volume 88.7 fL (81-99); Mean Platelet Vol. 11.3 fl (6.2-12.0); Monocyte# 0.75 X10^3/uL; Monocyte% 10.9 % (0-10); NRBC Flagged by Analyzer 0 % (0-5); Neutrophil # 4.47 X10^3/uL (2.7-7.7); Neutrophil % 65.1 % (47-70); Platelet Count 301 K/mm3 (150-450); RBC Distribution Width CV 15.8 % (11.6-14.6); RBC Distribution Width SD 50.1 fl (35.1-43.9); Red Blood Count 3.37 M/mm3 (4.2-5.4); White Blood Count 6.9 K/mm3 (4.4-11.0)
[2020-12-02 05:49] LABS: International Normalized Ratio 1.1; Prothrombin Time (Protime)PT. 13.5 SECONDS (11.7-14.9)
[2020-12-02 06:00] LABS: ALB/GLOB Ratio 0.4 RATIO (0.9-2.4); AST(SGOT) 34 U/L (15-37); Alanine Aminotransfer ALT/SGPT 27 U/L (13-56); Albumin, Serum 1.7 g/dL (3.2-5.0); Alkaline Phosphatase 96 U/L (45-117); Anion Gap 10 (5-15); BUN 35 mg/dL (7-18); BUN/Creat Ratio 8.1 RATIO (10-20); Calcium,Total 8.7 mg/dL (8.5-10.1); Chloride 106 mmol/L (98-107); Creatinine, Serum 4.31 mg/dL (0.55-1.02); EST Glomerular Filtration Rate 10 mL/min (>60); Est Glom Filt Rate - Afr Amer 13 mL/min (>60); Estimated Creatinine Clearance 8.81 ml/min; Globulin 4.5 g/dL (2.2-4.2); Glucose 188 mg/dL (74-106); LDH 497 U/L (84-246); Potassium 3.4 mmol/L (3.5-5.1); Protein, Total 6.2 g/dL (6.4-8.2); Sodium Level 144 mmol/L (136-145)
[2020-12-02 06:56] LABS: Bedside Glucose 170 mg/dL (70-110)
[2020-12-02] MEDS: Insulin Lispro 100 UNIT/ML INSULN.PEN SC ×2 (07:00→12:12)
--- NOTE | 2020-12-02 07:31 | DIALYSIS ---
CCPD tx complete. Tolerated tx well. UF of 1111ml. Effluent drainage is pale yellow and clear. No fibrin noted. Dressing is intact. Report was given to ASHUTOSH Rose.
--- NOTE | 2020-12-02 08:47 | PCM.PN.REN ---
Subjective Subjective Shortness of breath improved. Chest x-ray with large left pleural effusion. Urine output not documented. Objective Data Objective Data Vital Signs: Vital Signs Temp Pulse Resp BP Pulse Ox 98.1 F 74 18 123/39 H 95 12/02/20 02:43 12/02/20 07:01 12/02/20 02:43 12/02/20 02:43 12/02/20 07:17 Oxygen Flow Rate (L/min) 2 Oxygen Delivery Method Room Air Weight: 55.1 kg Body Mass Index (BMI) 25.0 Intake & Output: Intake and Output for Last 24 Hours 11/30/20 12/01/20 12/02/20 23:59 23:59 23:59 Intake Total 50 / 50 860 / 980 320 / 320 Output Total 3864 / 3864 Balance 50 / -450 -3004 / -2884 320 / 320 Lab / Micro Data Result Diagrams: 12/02/20 05:08 12/02/20 05:08 Labs: Laboratory Results - last 24 hr 12/01/20 12:07: POC Glucose 140 H 12/01/20 16:55: POC Glucose 146 H 12/01/20 21:22: POC Glucose 162 H 12/02/20 05:08: WBC 6.9, RBC 3.37 L, Hgb 9.3 L, Hct 29.9 L, MCV 88.7, MCH 27.6, MCHC 31.1 L, RDW Std Deviation 50.1 H, RDW Coeff of Nuha 15.8 H, Plt Count 301, MPV 11.3, Immature Gran % (Auto) 0.400, Neut % (Auto) 65.1, Lymph % (Auto) 19.5, Jack % (Auto) 10.9 H, Eos % (Auto) 2.9, Baso % (Auto) 1.2 H, Absolute Neuts (auto) 4.5, Absolute Lymphs (auto) 1.34, Nucleated RBC % 0 12/02/20 05:08: PT 13.5, INR 1.1 12/02/20 05:08: Sodium 144, Potassium 3.4 L, Chloride 106, Carbon Dioxide 28.0, Anion Gap 10, BUN 35 H, Creatinine 4.31 H, Estim Creat Clear Calc 8.81, Est GFR (MDRD) Af Amer 13 L, Est GFR (MDRD) Non-Af 10 L, BUN/Creatinine Ratio 8.1 L, Glucose 188 H, Calcium 8.7, Total Bilirubin 0.30, AST 34, ALT 27, Alkaline Phosphatase 96, Lactate Dehydrogenase 497 H, Total Protein 6.2 L, Albumin 1.7 L, Globulin 4.5 H, Albumin/Globulin Ratio 0.4 L 12/02/20 06:24: POC Glucose 170 H Micro: Microbiology 11/30/20 11:50 Stool Enteric Bacteriology - Final 11/30/20 11:50 Stool C. difficile DNA Amplification - Final Radiography Diagnostic Testing: Radiology Impression Chest X-Ray 12/01/20 09:31 IMPRESSION: Moderate size left pleural effusion with left basilar atelectasis and/or infiltrate. Electronically Signed: Nomi Parish MD at 11:37 EDT , Service support , Physical Exam Const alert and oriented x3 Resp Resp Narrative: Diminished breath sounds on the left base posteriorly Cardio regular rate Cardio Narrative: Murmur present GI non-tender and non-distended GI Narrative: PD catheter in place Palpation: soft Extremity no clubbing, cyanosis or edema Neuro Sensorium / Orientation: awake and alert Assessment & Plan Assessment/Plan (1) ESRD (end stage renal disease) on dialysis: PLAN: on CCPD 5 days a week. Continue same rx for tonight, 2.5% dianeal x4 1.8L fill volume. 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 UF 1111 last night. (2) CHF exacerbation: QUALIFIERS: Heart failure type: unspecified Qualified Code(s): I50.9 - Heart failure, unspecified PLAN: continue iv lasix, echo EF 45%. (3) HTN (hypertension), benign: PLAN: stable (4) DM2 (diabetes mellitus, type 2): PLAN: stable (5) Pleural effusion: PLAN: cxr (6) Hypokalemia: PLAN: replace as needed,stopped sodium bicarbonate since bicarb level elevated at 28. (7) Anemia: PLAN: continue oral iron, hgb stable
[2020-12-02] MEDS: Spironolactone 50 MG Tablet PO (08:53)
[2020-12-02] MEDS: Vitamin B Comp W-C Capsule 1 CAP PO (08:53)
[2020-12-02] MEDS: Furosemide 40 MG/4 ML Vial IV ×2 (08:53→17:23)
[2020-12-02] MEDS: Carvedilol 3.125 MG TABLET PO ×2 (08:54→22:30)
[2020-12-02] MEDS: 0.9% Saline Lock 10 ML Syringe IV ×3 (08:54→17:23)
[2020-12-02] MEDS: Lisinopril 40 MG Tablet PO (08:54)
[2020-12-02] MEDS: Calcitriol 0.25 MCG Capsule PO (08:54)
[2020-12-02] MEDS: NIFEdipine 60 MG Tablet PO (08:54)
[2020-12-02] MEDS: Glucerna Shake 120 ML LIQUID PO ×3 (08:54→17:23)
[2020-12-02] MEDS: Ferrous Sulfate 325 MG Tablet PO ×3 (08:59→17:22)
[2020-12-02] MEDS: Aspirin E.C. 81 MG Tablet PO (08:59)
[2020-12-02] MEDS: Cholecalciferol (VIT D3) 25 MCG TABLET (1,000 UNITS) PO (09:00)
[2020-12-02] MEDS: amLODIPine 5 MG Tablet PO (09:00)
--- NOTE | 2020-12-02 09:39 | PN.CARD_ITS ---
Subjective Subjective The patient is awake and alert this morning. She describes no new acute symptoms. She is pending further evaluation and care with a left-sided thoracentesis later today. Objective Data Vital Signs: Vital Signs Temp Pulse Resp BP Pulse Ox 97.8 F 60 18 163/63 H 98 12/02/20 08:43 12/02/20 08:43 12/02/20 08:43 12/02/20 08:43 12/02/20 09:13 Oxygen Flow Rate (L/min) 2 Oxygen Delivery Method Room Air Weight: 121 lb 7.595 oz Body Mass Index (BMI) 25.0 Intake & Output: Intake and Output for Last 24 Hours 11/30/20 12/01/20 12/02/20 23:59 23:59 23:59 Intake Total 50 / 50 860 / 980 320 / 320 Output Total 3864 / 3864 1111 / 1111 Balance 50 / -450 -3004 / -2884 -791 / -791 Lab / Micro Data Result Diagrams: 12/02/20 05:08 12/02/20 05:08 Labs: Laboratory Results - last 24 hr 12/01/20 12:07: POC Glucose 140 H 12/01/20 16:55: POC Glucose 146 H 12/01/20 21:22: POC Glucose 162 H 12/02/20 05:08: WBC 6.9, RBC 3.37 L, Hgb 9.3 L, Hct 29.9 L, MCV 88.7, MCH 27.6, MCHC 31.1 L, RDW Std Deviation 50.1 H, RDW Coeff of Nuha 15.8 H, Plt Count 301, MPV 11.3, Immature Gran % (Auto) 0.400, Neut % (Auto) 65.1, Lymph % (Auto) 19.5, [place] % (Auto) 10.9 H, Eos % (Auto) 2.9, Baso % (Auto) 1.2 H, Absolute Neuts (auto) 4.5, Absolute Lymphs (auto) 1.34, Nucleated RBC % 0 12/02/20 05:08: PT 13.5, INR 1.1 12/02/20 05:08: Sodium 144, Potassium 3.4 L, Chloride 106, Carbon Dioxide 28.0, Anion Gap 10, BUN 35 H, Creatinine 4.31 H, Estim Creat Clear Calc 8.81, Est GFR (MDRD) Af Amer 13 L, Est GFR (MDRD) Non-Af 10 L, BUN/Creatinine Ratio 8.1 L, Glucose 188 H, Calcium 8.7, Total Bilirubin 0.30, AST 34, ALT 27, Alkaline Phosphatase 96, Lactate Dehydrogenase 497 H, Total Protein 6.2 L, Albumin 1.7 L, Globulin 4.5 H, Albumin/Globulin Ratio 0.4 L 12/02/20 06:24: POC Glucose 170 H Cardiology Labs/Tests 12/02/20 05:08: WBC 6.9, RBC 3.37 L, Hgb 9.3 L, Hct 29.9 L, MCV 88.7, MCH 27.6, MCHC 31.1 L, Plt Count 301, MPV 11.3, Immature Gran % (Auto) 0.400, Neut % (Auto) 65.1, Lymph % (Auto) 19.5, [place] % (Auto) 10.9 H, Eos % (Auto) 2.9, Baso % (Auto) 1.2 H, Absolute Neuts (auto) 4.5, Nucleated RBC % 0 12/02/20 05:08: PT 13.5, INR 1.1 12/02/20 05:08: Sodium 144, Potassium 3.4 L, Chloride 106, Carbon Dioxide 28.0, Anion Gap 10, BUN 35 H, Creatinine 4.31 H, Est GFR (MDRD) Af Amer 13 L, Est GFR (MDRD) Non-Af 10 L, BUN/Creatinine Ratio 8.1 L, Glucose 188 H, Calcium 8.7, Total Bilirubin 0.30 Rhythm: Sinus rhythm Radiography Diagnostic Testing: Radiology Impression Chest X-Ray 12/01/20 09:31 IMPRESSION: Moderate size left pleural effusion with left basilar atelectasis and/or infiltrate. Electronically Signed: Nomi Parish MD at 11:37 EDT , Service support , Physical Exam Const alert, oriented x3 and no apparent distress Orientation / Consciousness: awake HEENT normocephalic, head/scalp atraumatic and hearing grossly normal bilaterally Eyes PERRL, EOMs intact bilaterally and conjunctivae normal Neck full ROM, supple and no JVD Resp Auscultation: diminished lung sounds left lower and upper Cardio regular rate, regular rhythm, S1 normal heart sound and S2 normal heart sound GI normal to inspection, nondistended, normoactive bowel sounds Extremity no pedal edema Skin no rashes or lesions noted Neuro oriented x3, moves all extremities, no focal motor deficits and no sensory deficits noted Psych mental status grossly normal Assessment & Plan Assessment/Plan (1) Elevated troponin: PLAN: The patient does have elevated troponin I levels from the outside hospital as well as at [facility] potentially compatible with a non-ST segment elevation OK. However it is not clear at this time that this represents a primary acute coronary syndrome event versus being related to a type II event being brought out by her underlying pulmonary and renal conditi ons. At the present time she appears without any acute coronary syndrome symptoms. Her ECG does not appear to demonstrate any acute ECG changes. She can continue to be observed and continue medical therapy as deemed appropriate as she goes through noncardiac evaluation based upon the underlying left pleural effusion and her renal insufficiency/failure. As her clinical course progresses she may need to be considered for further evaluation with diagnostic cardiac catheterization to evaluate for any obvious underlying significant CAD that would be contributing to her findings and warrant further evaluation and care. (2) Pleural effusion: PLAN: The patient has a large left pleural effusion. It is concerning that it is mainly left-sided. Being left-sided this does raise concerns of noncardiovascular etiologies as well. She is pending further evaluation care with a left-sided thoracentesis later today. (3) HLD (hyperlipidemia): QUALIFIERS: Hyperlipidemia type: unspecified Qualified Code(s): E78.5 - Hyperlipidemia, unspecified PLAN: The patient should continue risk factor evaluation care as deemed appropriate. (4) HTN (hypertension), benign: PLAN: Her blood pressure can be followed with her medicines adjusted accordingly taking into consideration her renal insufficiency (5) DM2 (diabetes mellitus, type 2): PLAN: She will continue evaluation care per internal medicine. (6) ESRD (end stage renal disease) on dialysis: PLAN: She will continue evaluation care per internal medicine and nephrology. (7) Hypokalemia: PLAN: Her electrolytes will need to be monitored and corrected. (8) Anemia: PLAN: There is a history of chronic anemia which may be related to her renal insufficiency. However she may need to be monitored for any obvious other etiologies that warrant further evaluation care. Cara'linad Comments The above was discussed with her. She was agreeable to this approach. As noted, the patient's clinical case has been previously discussed with her daughter (and [facility] house painting instructor) in person yesterday. This note was generated using a voice recognition system and there may be incorrect words, spelling or punctuation that were not noted when reviewing the office note prior to saving.
--- NOTE | 2020-12-02 09:47 | EKG12_ITS ---
Test Reason : AM EKG Blood Pressure : / mmHG Vent. Rate : 060 BPM Atrial Rate : 060 BPM P-R Int : 178 ms QRS Dur : 078 ms QT Int : 460 ms P-R-T Axes : 005 109 078 degrees QTc Int : 460 ms Sinus rhythm with occasional Premature ventricular complexes Otherwise normal ECG When compared with ECG of 02-DEC-2020 10:57, MANUAL COMPARISON REQUIRED, DATA IS UNCONFIRMED Confirmed by NICHOLE ALARCON, PHILLIP ([id number]), film or videotape editor ESEQUIEL ROSALES ([id number]) on 12/03/2020 12:39:34 PM Referred By: CORA Confirmed By:PHILLIP VAERLA MD
[2020-12-02 11:41] LABS: Bedside Glucose 159 mg/dL (70-110)
[2020-12-02] MEDS: Lidocaine 2% (20 ml mdv) 20 ML Vial INFILT (14:00)
--- NOTE | 2020-12-02 14:00 | FLU_PTH ---
PATIENT: TATA SMITH LOC: [facility] U#:[id number] AGE/SX: 85/F ROOM: [facility] RE11/30/[address]: Dr. Shaka Solitario DO : 1935 BED: 1 DIS: 12/04/2020 SPEC #: [id number] RECD: 12/02/20 14:08 STATUS: [place] REHeather #: [id number] ALMAZ: 12/02/20 14:[address]: Shaka Solitario DEPT: CYTOLOGY RECD BY: Angela Khalil ENTERED: 12/03/20 07:44 SP TYPE: Fluid OTHR DR: MD Dr. Kamini Austin DO Dr. Paul Moodispaw, MD Tissues: Pleural fluid, NOS Procedures: Special Stain Group II Surgery Specimen Level IV Cytospin Fluid HEADER OPERATION: Ultrasound-guided thoracentesis PRE-OP DIAGNOSIS: Left pleural effusion TISSUE SUBMITTED: Thoracentesis fluid for cytology DIAGNOSIS CYTOLOGY Thoracentesis fluid for cytology (cytospin and cell block): Negative for malignant cells. See comment. MAGALY:salazar 12/04/2020 COMMENT Clinical correlation and appropriate follow up are necessary. CYTOLOGY STUDY Slides are reviewed. CYTOLOGY GROSS Received is 90 ml of light brown cloudy fluid labeled with the patient's name and and designated per the requisition as thoracentesis. Submitted for cytology preparation including cell block. / salazar 12/03/2020 TC:5 CPT: 97335, 54106
--- NOTE | 2020-12-02 14:00 | RAD_ITS ---
STUDY: X-RAY CHEST REASON FOR EXAM: Female, 85 years old. POST THORA TECHNIQUE: AP inspiration and expiration views. COMPARISON: Comparison is made with prior study dated 12/01/2020. FINDINGS: The patient is status post left thoracentesis. There is no evidence of pneumothorax. Minimal blunting of both costophrenic angles persist. RAD/Chest Insp/Exp 2 View IMPRESSION: Status post left thoracentesis. There is no evidence of pneumothorax. Electronically Signed: Nomi Parish MD at 14:22 EDT , Service support ,
[2020-12-02 14:29] LABS: Body Fluid Mononuclear WBC # 0.198 10^3/uL; Body Fluid Mononuclear WBC % 94.8 %; Body Fluid Polynuclear WBC # 0.011 10^3/uL; Body Fluid Polynuclear WBC % 5.2 %; Body Fluid Total Cells Counted 0.217 10^3/ul; Red Cell Count/Body Fluid 0.003 10^6/ul; White Blood Count/Body Fluid 0.209 10^3/uL
[2020-12-02 14:30] LABS: Auto B Fluid Analyzer BKGD Ct COUNTS W/IN LIMITS (W/IN LIMITS)
[2020-12-02 14:31] LABS: Appearance/Body Fluid SL CLDY; Color/Body Fluid LT YEL; Source- Body Fluid THORACENTESIS
--- NOTE | 2020-12-02 14:32 | PN.HOSP_ITS ---
Subjective Subjective Feels well. No events overnight. Objective Data Objective Data Vital Signs: Vital Signs Temp Pulse Resp BP Pulse Ox 36.5 C L 57 L 16 179/58 H 100 12/02/20 13:08 12/02/20 13:08 12/02/20 13:08 12/02/20 13:08 12/02/20 13:08 Oxygen Flow Rate (L/min) 2 Oxygen Delivery Method Room Air Weight: 55.1 kg Body Mass Index (BMI) 25.0 Intake & Output: Intake and Output for Last 24 Hours 11/30/20 12/01/20 12/02/20 23:59 23:59 23:59 Intake Total 50 / 50 860 / 980 800 / 800 Output Total 3864 / 3864 1861 / 1861 Balance 50 / -450 -3004 / -2884 -1061 / -1061 Lab / Micro Data Result Diagrams: 12/02/20 05:08 12/02/20 05:08 Labs: Laboratory Results - last 24 hr 12/01/20 16:55: POC Glucose 146 H 12/01/20 21:22: POC Glucose 162 H 12/02/20 05:08: WBC 6.9, RBC 3.37 L, Hgb 9.3 L, Hct 29.9 L, MCV 88.7, MCH 27.6, MCHC 31.1 L, RDW Std Deviation 50.1 H, RDW Coeff of Nuha 15.8 H, Plt Count 301, MPV 11.3, Immature Gran % (Auto) 0.400, Neut % (Auto) 65.1, Lymph % (Auto) 19.5, [place] % (Auto) 10.9 H, Eos % (Auto) 2.9, Baso % (Auto) 1.2 H, Absolute Neuts (auto) 4.5, Absolute Lymphs (auto) 1.34, Nucleated RBC % 0 12/02/20 05:08: PT 13.5, INR 1.1 12/02/20 05:08: Sodium 144, Potassium 3.4 L, Chloride 106, Carbon Dioxide 28.0, Anion Gap 10, BUN 35 H, Creatinine 4.31 H, Estim Creat Clear Calc 8.81, Est GFR (MDRD) Af Amer 13 L, Est GFR (MDRD) Non-Af 10 L, BUN/Creatinine Ratio 8.1 L, Glucose 188 H, Calcium 8.7, Total Bilirubin 0.30, AST 34, ALT 27, Alkaline Phosphatase 96, Lactate Dehydrogenase 497 H, Total Protein 6.2 L, Albumin 1.7 L, Globulin 4.5 H, Albumin/Globulin Ratio 0.4 L 12/02/20 06:24: POC Glucose 170 H 12/02/20 11:14: POC Glucose 159 H 12/02/20 14:00: Fluid Source THORACENTESIS, Fluid Color LT YEL, Fluid Appearance SL CLDY, Fluid WBC 0.209, Fluid RBC 0.003, Fluid Tot Cell Count 0.217 H, Fld Polynuclear WBCs # 0.011, Fld Polynuclear WBCs % 5.2, Fluid Mononuclear WBCs 0.198, Fld Mononuclear WBCs % 94.8, Fl Pathologist Comment May follow, Fluid Comment 2 SEE COMMENT Micro: Microbiology 11/30/20 11:50 Stool Enteric Bacteriology - Final 11/30/20 11:50 Stool C. difficile DNA Amplification - Final Radiography Diagnostic Testing: Radiology Impression Chest X-Ray 12/02/20 14:00 IMPRESSION: Status post left thoracentesis. There is no evidence of pneumothorax. Electronically Signed: Nomi Parish MD at 14:22 EDT , Service support , Physical Exam Const alert Resp normal respiratory effort and no retractions Resp Narrative: DTP in LLL Cardio regular rate, regular rhythm, S1 normal heart sound and S2 normal heart sound GI normal to inspection, nondistended, normoactive bowel sounds, soft to palpation, non-tender and non-distended Extremity normal to inspection and full ROM Assessment & Plan Assessment/Plan (1) CHF exacerbation: QUALIFIERS: Heart failure type: unspecified Qualified Code(s): I50.9 - Heart failure, unspecified (2) Elevated troponin: PLAN: The patient is a 85 y/o F w/ PMHx: Diabetes mellitus type II, HTN, HLD, ESRD on chronic peritoneal dialysis, Chronic anemia/AOCD, Hx AVM w/ GI bleed who was initially seen at [facility] ED on 11/30/20 prior to transfer to the [facility] as a direct admission on 11/30/20 as no bed availability in their region with history of ongoing progressively worsening dyspnea, worse with exertion with notable orthopnea over the last several days. 1. Acute HFrEF * EF 45% * complicated by ESRD and moderate pulmonary HTN * on IV furosemide * continue lisinopril,carvedilol * no prior echo available. * pt has never seen rn ambulatory before (Dr. Martinez was contact through [facility] and advised transfer and possible LHC) * cardiology on consult 2. Elevated troponin * slightly elevated, but may be skewed by ESRD * reviewed records from [facility], no prior cardiac work up, she has never seen a rn ambulatory before. 3. Pleural effusion * reviewed records from [facility], have been present since May, but noted to be bigger. No disc available to review. Will check CXR here * thoracentesis performed 12/02: Cell count 217. LDH, glucose pending. 4. ESRD * on PD * nephrology on consult 5. Diarrhea * chronic * intermittent. ?IBS? * Cdiff, enterir panel negative * add loperamide 6. Hypokalemia * replace * monitor 7. Anemia of chronic disease * likely stable * no need for TF at this time 87. VTE propylaxis: SQ heparin Charges/Coding Visit Charges Inpatient E&M: 88520 Subs Hosp L2
[2020-12-02 14:44] LABS: Glucose, Body Fluid 166 mg/dL (40-70); LDH,Body Fluid 91 Units/l (Not Establ.)
[2020-12-02] MEDS: Acetaminophen 325 MG Tablet 650 MG PO (15:00)
[2020-12-02] MEDS: hydrALAZINE 20 MG/ML Vial 10 MG IV (15:01)
--- NOTE | 2020-12-02 15:02 | US_ITS ---
PROCEDURE: ULTRASOUND GUIDED THORACENTESIS. DATE: 12/02/2020.. INDICATION: Female, 85 years old. Left pleural effusion. PHYSICIAN: Nomi Parish M.D. PROCEDURE: The risks, benefits, and alternatives to the procedure were explained to the patient. The specific risks of bleeding, infection, and pneumothorax requiring chest tube insertion were discussed and accepted. Written informed consent was obtained. Ultrasonographic evaluation of the left lower pleural space was carried out. An adequate pocket was identified. The patient was placed in the sitting, upright position. The overlying skin was prepped and draped in sterile fashion. 1% lidocaine was administered subcutaneously for local anesthesia. Under ultrasound guidance, a 5 [place] thoracentesis needle/catheter system was advanced into the left posterior lower pleural fluid collection. Approximately 750 mL of liana-colored fluid was drained. The catheter was removed, and a sterile dressing was applied. A specimen was collected and sent to the laboratory for analysis, as requested by the referring clinician. The patient tolerated the procedure well. A chest x-ray was ordered. US/Thoracentesis W US IMPRESSION: Ultrasound-guided left thoracentesis. Electronically Signed: Nomi Parish MD at 8:21 EDT , Service support ,
[2020-12-02 15:19] LABS: Lymphocytes 76 %; Monocytes 10 %; Neutrophil (Segs) 10 %; Other Cell Type/BF 4 %
[2020-12-02 15:20] LABS: Body Fluid QC Type(s) BF1Q
--- NOTE | 2020-12-02 15:50 | RAD_ITS ---
STUDY: X-RAY CHEST REASON FOR EXAM: Female, 85 years old. Chest pain TECHNIQUE: Single frontal view of the chest. COMPARISON: 12/02/2020 FINDINGS: There is a patchy opacity within the left midlung. There is a right pleural effusion. There are prominent interstitial markings. Normal size heart. Normal mediastinum and robin. Normal visualized pulmonary arteries. There is atherosclerotic calcification of the aortic arch with tortuosity. Normal visualized thoracic spine. Normal visualized ribs, clavicles, and shoulders. There is no demonstrated abnormality of the visualized soft tissue structures of the upper abdomen. RAD/Chest 1 View (Portable) IMPRESSION: Right pleural effusion, cannot exclude associated right basilar atelectasis and/or pneumonia. Patchy opacity within the left midlung may be secondary to underlying edema and/or an infectious process. Prominent interstitial markings, a nonspecific finding may be secondary to underlying edema and/or infectious process. Electronically Signed: Genesis Justin MD at 17:26 EDT Tel , Service support ,
[2020-12-02 16:35] LABS: Bedside Glucose 71 mg/dL (70-110)
[2020-12-02] MEDS: Heparin Injection (Vial) 5,000 UNIT/ML VIAL 5000 UNIT SC (22:30)
[2020-12-02] MEDS: Atorvastatin Calcium 40 MG Tablet PO (22:30)
[2020-12-02 23:05] LABS: Bedside Glucose 130 mg/dL (70-110)
--- NOTE | 2020-12-02 23:19 | DIALYSIS ---
[facility] tx initiated using aseptic technique. Using 2 bags of 2.5% dextrose solution. No effluent drainage to evaluate upon initiation. Dressing changed. No problems noted. Report was given to ASHUTOSH Giron.
[2020-12-03] VITALS (18 sets, daily range): BP systolic 131–157; BP diastolic 51–96; PULSE 59–73; RESP 16–18; TEMP 36.7–37.3; O2SAT 94–100
[2020-12-03] MEDS: 0.9% Saline Lock 10 ML Syringe IV ×3 (04:01→17:23)
[2020-12-03 05:16] LABS: Absolute Lymphocyte Count 1.22 X10^3/uL (0.83-4.51); Basophil# 0.06 X10^3/uL; Basophil% 0.8 % (0-1); Eosinophil# 0.19 X10^3/uL; Eosinophils% 2.7 % (0-5); Hematocrit 28.2 % (37-47); Hemoglobin 8.9 g/dL (12.0-15.0); Lymphocyte # 1.22 X10^3/ul (0.83-4.51); Lymphocyte % 17.1 % (19-41); Mean Corp Hgb Conc 31.6 g/dL (32-36); Mean Corpuscular Hgb 27.8 pg (27.0-32.0); Mean Corpuscular Volume 88.1 fL (81-99); Mean Platelet Vol. 10.9 fl (6.2-12.0); Monocyte# 0.68 X10^3/uL; Monocyte% 9.6 % (0-10); NRBC Flagged by Analyzer 0 % (0-5); Neutrophil # 4.95 X10^3/uL (2.7-7.7); Neutrophil % 69.5 % (47-70); Platelet Count 281 K/mm3 (150-450); RBC Distribution Width CV 16.1 % (11.6-14.6); RBC Distribution Width SD 50.9 fl (35.1-43.9); White Blood Count 7.1 K/mm3 (4.4-11.0)
[2020-12-03 05:30] LABS: Anion Gap 10 (5-15); BUN 36 mg/dL (7-18); BUN/Creat Ratio 8.4 RATIO (10-20); Calcium,Total 8.5 mg/dL (8.5-10.1); Chloride 107 mmol/L (98-107); Creatinine, Serum 4.29 mg/dL (0.55-1.02); EST Glomerular Filtration Rate 11 mL/min (>60); Est Glom Filt Rate - Afr Amer 13 mL/min (>60); Estimated Creatinine Clearance 8.64 ml/min; Glucose 227 mg/dL (74-106); Potassium 3.3 mmol/L (3.5-5.1); Sodium Level 144 mmol/L (136-145)
--- NOTE | 2020-12-03 05:55 | EKG12_ITS ---
Test Reason : Blood Pressure : / mmHG Vent. Rate : 063 BPM Atrial Rate : 063 BPM P-R Int : 176 ms QRS Dur : 072 ms QT Int : 400 ms P-R-T Axes : 032 083 044 degrees QTc Int : 409 ms Normal sinus rhythm with sinus arrhythmia Septal infarct , age undetermined Abnormal ECG No previous ECGs available Confirmed by NICHOLE ALARCON, PHILLIP ([id number]), editor newspaper ESEQUIEL ROSALES ([id number]) on 12/03/2020 12:40:13 PM Referred By: CHRISTIAN Confirmed By:PHILLIP VARELA MD
[2020-12-03] MEDS: amLODIPine 5 MG Tablet PO (06:17)
[2020-12-03] MEDS: Lisinopril 40 MG Tablet PO (06:17)
[2020-12-03] MEDS: Carvedilol 3.125 MG TABLET PO ×2 (06:17→20:23)
[2020-12-03] MEDS: NIFEdipine 60 MG Tablet PO (06:17)
[2020-12-03] MEDS: Aspirin E.C. 81 MG Tablet PO (06:17)
[2020-12-03 06:51] LABS: Bedside Glucose 213 mg/dL (70-110)
[2020-12-03] MEDS: Potassium Chloride Oral Tablet 20 MEQ 60 MEQ PO (07:02)
[2020-12-03 07:06] LABS: Magnesium 1.8 mg/dL (1.6-2.6)
--- NOTE | 2020-12-03 07:27 | DIALYSIS ---
[facility] COMPLETE AND TAKEN OFF USING ASEPTIC TECHNIQUE. [id number] VITALS STABLE CLEAR PALE YELLOW EFFLUENT FLUID NO FIBRIN NOTED REPORT TO KIT BOYKIN
--- NOTE | 2020-12-03 08:40 | CL.D_ITS ---
Patient Name: TATA SMITH Study Date: 12/03/2020 Performing: Paolo Erazo MD Ht: 59.05 inches 150 cm : 1935 Wt: 119.05 lbs 54 kg Age: 85 Gender: female BSA: 1.48 PROCEDURE(S) PERFORMED [id number]/COR CLINICAL PROFILE AND INDICATIONS Indications: ACS > 24 hrs, Suspected CAD, LV Dysfunction Heart Failure: None Stress/Imaging Stress/Image Study Performed: No Angina Classification Anginal Classification w/in 2 Weeks: Anginal Equivalent Dyspnea CAD Presentations: Non-STEMI. CONCLUSIONS Elevated Left Ventricular End Diastolic Pressure [place] 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 The risks and benefits of the procedure as well as a full d escription of our services here and current unavailability of surgical backup were fully explained to the patient and/or their significant other prior to the catheterization. The Timeout was completed, verifying the correct patient and procedure. The patient's procedural site was prepped and draped in the usual fashion. Local anesthetic was given subcutaneously to right radial region with Lidocaine 2% . Using a modified Seldinger technique, arterial access was obtained via the right radial artery, a 6 Fr sheath was inserted. Left Coronary Artery selective angiography was performed in multiple views u sing a 5 Fr. 4.0 Crescent catheter. Right Coronary Artery selective angiography was then performed in mu ltiple views using a 5 Fr. 4.0 Crescent catheter. LV to AO pullback pressures were then recorded.The art erial sheath was pulled and a TR Band was applied for hemostasis CORONARY ANGIOGRAPHY DOMINANCE: Right Dominant LEFT HEART ASSESSMENT Left Ventricular Ejection Fraction: Not assessed Elevated Left Ventricular End Diastolic Pressure LVEDP: 16 mmHg LEFT MAIN: Mild calcification, distal: eccentric: 25 % Stenosis LEFT ANTERIOR DESCENDING ARTERY: OSTIAL LAD: Mild calcification, eccentric: 75 % Stenosis PROX LAD: Mild calcification, eccentric: 75 % Stenosis MID LAD: Mild luminal irregularities CIRCUMFLEX ARTERY: PROX CIRC: Mild calcification, long: diffuse: irregular: 85 % Stenosis OM 1: Proximal - long: diffuse: 85 % Stenosis, Mid - long: diffuse: 75 % Stenosis RIGHT CORONARY ARTERY: Mild calcification MID RCA: long: diffuse: 85 % Stenosis COLLATERAL FLOW: Collateral flow from Left to Left AORTIC ROOT: Calcified Aortic Arch: calcified COMPLICATIONS No Complications PROCEDURE MEDICATIONS Fentanyl 50 mcg IV Versed 1 mg IV Oxygen: 2 L/min via nasal cannula Heparin given IA 12/03/2020 08:02:10 Verapamil 2.5mg, Ntg 100mcgs, 3000 units of Heparin given IA 12/03/2020 08:02:10 SUMMARY OF HEMODYNAMIC DATA Time AIR REST ECG 07:45:52 AO 135/44 (75) SA 08:04:15 LV 168/1, 19 08:17:56 LV 183/-5, 16 08:18:03 LVp 171/21, 35 08:18:11 AOp 171/42 (85) 08:18:16 08:28:52 Signed By Paolo Erazo MD On 12/03/2020 08:40:14 Paolo Erazo MD
[2020-12-03] MEDS: Furosemide 40 MG/4 ML Vial IV ×2 (08:56→17:23)
[2020-12-03] MEDS: Glucerna Shake 120 ML LIQUID PO ×3 (08:56→16:13)
[2020-12-03] MEDS: Spironolactone 50 MG Tablet PO (08:57)
[2020-12-03] MEDS: Calcitriol 0.25 MCG Capsule PO (08:57)
[2020-12-03] MEDS: Ferrous Sulfate 325 MG Tablet PO ×3 (08:57→16:14)
[2020-12-03] MEDS: Cholecalciferol (VIT D3) 25 MCG TABLET (1,000 UNITS) PO (08:57)
[2020-12-03] MEDS: Vitamin B Comp W-C Capsule 1 CAP PO (08:57)
--- NOTE | 2020-12-03 09:30 | CASEMGMT ---
According to [facility] website, the following are in-network tertiary facilities: [facility], [facility], [facility], [facility], [facility], [facility], [facility], and . Rojelio BOYKIN CM
--- NOTE | 2020-12-03 09:48 | PCM.PN.REN ---
Subjective Subjective BREATHING IMPROVED AFTER THORACENTESIS YESTERDAY. LESS DYSPNEIC WITH EXERTION. HEART CATH TODAY. PLAN FOR TRANSFER Objective Data Objective Data Vital Signs: Vital Signs Temp Pulse Resp BP Pulse Ox 99.1 F 59 L 18 155/51 H 94 12/03/20 06:08 12/03/20 06:16 12/03/20 06:08 12/03/20 06:08 12/03/20 07:24 Oxygen Flow Rate (L/min) 2 Oxygen Delivery Method [4] Room Air Oxygen Delivery Method [3] Room Air Oxygen Delivery Method [2] Room Air Oxygen Delivery Method [1 ( Room Air Initial Baseline)] Oxygen Delivery Method Room Air Weight: 54.1 kg Body Mass Index (BMI) 25.0 Intake & Output: Intake and Output for Last 24 Hours 12/01/20 12/02/20 12/03/20 23:59 23:59 23:59 Intake Total 860 / 980 1160 / 1400 240 / 240 Output Total 3864 / 3864 2611 / 2611 Balance -3004 / -2884 -1451 / -1211 240 / 240 Lab / Micro Data Result Diagrams: 12/03/20 04:56 12/03/20 04:56 Labs: Laboratory Results - last 24 hr 12/02/20 11:14: POC Glucose 159 H 12/02/20 14:00: Fluid Glucose 166 H, Fluid LDH 91 12/02/20 14:00: Fluid Source THORACENTESIS, Fluid Color LT YEL, Fluid Appearance SL CLDY, Fluid WBC 0.209, Fluid RBC 0.003, Fluid Tot Cell Count 0.217 H, Fld Polynuclear WBCs # 0.011, Fld Polynuclear WBCs % 5.2, Fluid Mononuclear WBCs 0.198, Fld Mononuclear WBCs % 94.8, Fluid Neutrophils 10, Fluid Lymphocytes 76, Fluid Monocytes 10, Fluid Other Cells 4, Fl Pathologist Comment May follow, Fluid Comment 2 SEE COMMENT 12/02/20 16:33: POC Glucose 71 12/02/20 22:20: POC Glucose 130 H 12/03/20 04:56: WBC 7.1, RBC 3.20 L, Hgb 8.9 L, Hct 28.2 L, MCV 88.1, MCH 27.8, MCHC 31.6 L, RDW Std Deviation 50.9 H, RDW Coeff of Nuha 16.1 H, Plt Count 281, MPV 10.9, Immature Gran % (Auto) 0.300, Neut % (Auto) 69.5, Lymph % (Auto) 17.1 L, [place] % (Auto) 9.6, Eos % (Auto) 2.7, Baso % (Auto) 0.8, Absolute Neuts (auto) 5.0, Absolute Lymphs (auto) 1.22, Nucleated RBC % 0 12/03/20 04:56: Sodium 144, Potassium 3.3 L, Chloride 107, Carbon Dioxide 27.0, Anion Gap 10, BUN 36 H, Creatinine 4.29 H, Estim Creat Clear Calc 8.64, Est GFR (MDRD) Af Amer 13 L, Est GFR (MDRD) Non-Af 11 L, BUN/Creatinine Ratio 8.4 L, Glucose 227 H, Calcium 8.5 12/03/20 04:56: Magnesium 1.8 12/03/20 06:14: POC Glucose 213 H Micro: Microbiology 11/30/20 11:50 Stool Enteric Bacteriology - Final 11/30/20 11:50 Stool C. difficile DNA Amplification - Final Radiography Diagnostic Testing: Radiology Impression Chest X-Ray 12/02/20 14:00 IMPRESSION: Status post left thoracentesis. There is no evidence of pneumothorax. Electronically Signed: Nomi Parish MD at 14:22 EDT , Service support , Thoracentesis Ultrasound 12/02/20 15:02 IMPRESSION: Ultrasound-guided left thoracentesis. Electronically Signed: Nomi Parish MD at 8:21 EDT , Service support , Chest X-Ray 12/02/20 15:50 IMPRESSION: Right pleural effusion, cannot exclude associated right basilar atelectasis and/or pneumonia. Patchy opacity within the left midlung may be secondary to underlying edema and/or an infectious process. Prominent interstitial markings, a nonspecific finding may be secondary to underlying edema and/or infectious process. Electronically Signed: Genesis Justin MD at 17:26 EDT Tel , Service support , Physical Exam Const alert and oriented x3 Resp clear to auscultation bilaterally Cardio regular rate GI non-tender Palpation: soft Neuro Sensorium / Orientation: awake and alert Assessment & Plan Assessment/Plan (1) ESRD (end stage renal disease) on dialysis: PLAN: on [facility] 5 days a week. Continue same rx for tonight, 2.5% dianeal x4 1.8L fill volume. Primary agriculture consultant Steven Bravo at [facility]. UF [id number] last night. (2) CHF exacerbation: QUALIFIERS: Heart failure type: unspecified Qualified Code(s): I50.9 - Heart failure, unspecified PLAN: continue iv lasix, echo EF 45%. (3) HTN (hypertension), benign: PLAN: stable (4) DM2 (diabetes mellitus, type 2): PLAN: stable (5) Pleural effusion: PLAN: s/p left thoracentesis 750cc fluid removed on 12/02, breathing improved (6) Hypokalemia: PLAN: replace as needed (7) Anemia: PLAN: continue oral iron, hgb stable (8) CAD (coronary artery disease): PLAN: s/p cath today
[2020-12-03 11:55] LABS: Bedside Glucose 148 mg/dL (70-110)
[2020-12-03 14:00] LABS: Pathologist Comment/Body Fluid Reviewed
--- NOTE | 2020-12-03 15:12 | PN.HOSP_ITS ---
Subjective Subjective Feels well. Denies SOB. Denies CP. Objective Data Objective Data Vital Signs: Vital Signs Temp Pulse Resp BP Pulse Ox 36.8 C 62 16 131/63 H 99 12/03/20 11:30 12/03/20 11:30 12/03/20 11:30 12/03/20 11:30 12/03/20 11:30 Oxygen Flow Rate (L/min) 2 Oxygen Delivery Method [4] Room Air Oxygen Delivery Method [3] Room Air Oxygen Delivery Method [2] Room Air Oxygen Delivery Method [1 ( Room Air Initial Baseline)] Oxygen Delivery Method Room Air Weight: 54.1 kg Body Mass Index (BMI) 25.0 Intake & Output: Intake and Output for Last 24 Hours 12/01/20 12/02/20 12/03/20 23:59 23:59 23:59 Intake Total 860 / 980 1160 / 1400 720 / 720 Output Total 3864 / 3864 2611 / 2611 Balance -3004 / -2884 -1451 / -1211 720 / 720 Lab / Micro Data Result Diagrams: 12/03/20 04:56 12/03/20 04:56 Labs: Laboratory Results - last 24 hr 12/02/20 14:00: Fluid Neutrophils 10, Fluid Lymphocytes 76, Fluid Monocytes 10, Fluid Other Cells 4, Fl Pathologist Comment Reviewed 12/02/20 16:33: POC Glucose 71 12/02/20 22:20: POC Glucose 130 H 12/03/20 04:56: WBC 7.1, RBC 3.20 L, Hgb 8.9 L, Hct 28.2 L, MCV 88.1, MCH 27.8, MCHC 31.6 L, RDW Std Deviation 50.9 H, RDW Coeff of Nuha 16.1 H, Plt Count 281, MPV 10.9, Immature Gran % (Auto) 0.300, Neut % (Auto) 69.5, Lymph % (Auto) 17.1 L, [place] % (Auto) 9.6, Eos % (Auto) 2.7, Baso % (Auto) 0.8, Absolute Neuts (auto) 5.0, Absolute Lymphs (auto) 1.22, Nucleated RBC % 0 12/03/20 04:56: Sodium 144, Potassium 3.3 L, Chloride 107, Carbon Dioxide 27.0, Anion Gap 10, BUN 36 H, Creatinine 4.29 H, Estim Creat Clear Calc 8.64, Est GFR (MDRD) Af Amer 13 L, Est GFR (MDRD) Non-Af 11 L, BUN/Creatinine Ratio 8.4 L, Glucose 227 H, Calcium 8.5 12/03/20 04:56: Magnesium 1.8 12/03/20 06:14: POC Glucose 213 H 12/03/20 11:48: POC Glucose 148 H Micro: Microbiology 11/30/20 11:50 Stool Enteric Bacteriology - Final 11/30/20 11:50 Stool C. difficile DNA Amplification - Final Radiography Diagnostic Testing: Radiology Impression Thoracentesis Ultrasound 12/02/20 15:02 IMPRESSION: Ultrasound-guided left thoracentesis. Electronically Signed: Nomi Parish MD at 8:21 EDT , Service support , Chest X-Ray 12/02/20 15:50 IMPRESSION: Right pleural effusion, cannot exclude associated right basilar atelectasis and/or pneumonia. Patchy opacity within the left midlung may be secondary to underlying edema and/or an infectious process. Prominent interstitial markings, a nonspecific finding may be secondary to underlying edema and/or infectious process. Electronically Signed: Genesis Justin MD at 17:26 EDT Tel , Service support , Physical Exam Const alert and no apparent distress HEENT head/scalp atraumatic Head and Scalp: normocephalic Resp normal respiratory effort Resp Narrative: crackles LLL. Cardio regular rate, regular rhythm, S1 normal heart sound and S2 normal heart sound GI normal to inspection, nondistended, normoactive bowel sounds, soft to palpation, non-tender and non-distended Extremity normal to inspection and full ROM Assessment & Plan Assessment/Plan (1) CHF exacerbation: QUALIFIERS: Heart failure type: unspecified Qualified Code(s): I50.9 - Heart failure, unspecified (2) Elevated troponin: PLAN: The patient is a 85 y/o F w/ PMHx: Diabetes mellitus type II, HTN, HLD, ESRD on chronic peritoneal dialysis, Chronic anemia/AOCD, Hx AVM w/ GI bleed who was initially seen at [facility] ED on 11/30/20 prior to transfer to the [facility] as a direct admission on 11/30/20 as no bed availability in their region with history of ongoing progressively worsening dyspnea, worse with exertion with notable orthopnea over the last several days. 1. Acute HFrEF * EF 45% * complicated by ESRD and moderate pulmonary HTN * on IV furosemide * continue lisinopril,carvedilol * no prior echo available. * pt has never seen assembly machine tool setter before (Dr. Martinez was contact through [facility] and advised transfer and possible LHC) * cardiology on consult 2. NSTEMI * trops slightly elevated, but may be skewed by ESRD * reviewed records from [facility], no prior cardiac work up, she has never seen a assembly machine tool setter before. * LHC today showed multivessel disease (LAD 75% stenosis, Circ 85%, RCA 85%). Dr. Erazo notified her dtr. Impending transfer to [facility]. * Continue carvedilol, HIS, ASA 3. Pleural effusion * reviewed records from [facility], have been present since May, but noted to be bigger. No disc available to review. Will check CXR here * thoracentesis performed 12/02: Transudative. 750cc fluid removed. 4. ESRD * on PD * nephrology on consult 5. Diarrhea * chronic * intermittent. ?IBS? * Cdiff, enteric panel negative * add loperamide 6. Hypokalemia * replace * monitor 7. Anemia of chronic disease * likely stable * no need for TF at this time 8. VTE propylaxis: SQ heparin Charges/Coding Visit Charges Inpatient E&M: 86266 Subs Hosp L2
[2020-12-03] MEDS: Insulin Lispro 100 UNIT/ML INSULN.PEN SC ×2 (16:13→20:24)
[2020-12-03 16:25] LABS: Bedside Glucose 172 mg/dL (70-110)
--- NOTE | 2020-12-03 17:35 | PN.CARD_ITS ---
Subjective Subjective The patient is status post diagnostic cardiac catheterization. She has no new acute complaints. Objective Data Vital Signs: Vital Signs Temp Pulse Resp BP Pulse Ox 98.2 F 63 16 131/63 H 99 12/03/20 11:30 12/03/20 15:00 12/03/20 11:30 12/03/20 11:30 12/03/20 11:30 Oxygen Flow Rate (L/min) 2 Oxygen Delivery Method [4] Room Air Oxygen Delivery Method [3] Room Air Oxygen Delivery Method [2] Room Air Oxygen Delivery Method [1 ( Room Air Initial Baseline)] Oxygen Delivery Method Room Air Weight: 119 lb 4.321 oz Body Mass Index (BMI) 25.0 Intake & Output: Intake and Output for Last 24 Hours 12/01/20 12/02/20 12/03/20 23:59 23:59 23:59 Intake Total 860 / 980 1160 / 1400 720 / 720 Output Total 3864 / 3864 2611 / 2611 Balance -3004 / -2884 -1451 / -1211 720 / 720 Lab / Micro Data Result Diagrams: 12/03/20 04:56 12/03/20 04:56 Labs: Laboratory Results - last 24 hr 12/02/20 14:00: Fl Pathologist Comment Reviewed 12/02/20 22:20: POC Glucose 130 H 12/03/20 04:56: WBC 7.1, RBC 3.20 L, Hgb 8.9 L, Hct 28.2 L, MCV 88.1, MCH 27.8, MCHC 31.6 L, RDW Std Deviation 50.9 H, RDW Coeff of Nuha 16.1 H, Plt Count 281, MPV 10.9, Immature Gran % (Auto) 0.300, Neut % (Auto) 69.5, Lymph % (Auto) 17.1 L, [place] % (Auto) 9.6, Eos % (Auto) 2.7, Baso % (Auto) 0.8, Absolute Neuts (auto) 5.0, Absolute Lymphs (auto) 1.22, Nucleated RBC % 0 12/03/20 04:56: Sodium 144, Potassium 3.3 L, Chloride 107, Carbon Dioxide 27.0, Anion Gap 10, BUN 36 H, Creatinine 4.29 H, Estim Creat Clear Calc 8.64, Est GFR (MDRD) Af Amer 13 L, Est GFR (MDRD) Non-Af 11 L, BUN/Creatinine Ratio 8.4 L, Glucose 227 H, Calcium 8.5 12/03/20 04:56: Magnesium 1.8 12/03/20 06:14: POC Glucose 213 H 12/03/20 11:48: POC Glucose 148 H 12/03/20 16:12: POC Glucose 172 H Cardiology Labs/Tests 12/03/20 04:56: WBC 7.1, RBC 3.20 L, Hgb 8.9 L, Hct 28.2 L, MCV 88.1, MCH 27.8, MCHC 31.6 L, Plt Count 281, MPV 10.9, Immature Gran % (Auto) 0.300, Neut % (Auto) 69.5, Lymph % (Auto) 17.1 L, [place] % (Auto) 9.6, Eos % (Auto) 2.7, Baso % (Auto) 0.8, Absolute Neuts (auto) 5.0, Nucleated RBC % 0 12/03/20 04:56: Sodium 144, Potassium 3.3 L, Chloride 107, Carbon Dioxide 27.0, Anion Gap 10, BUN 36 H, Creatinine 4.29 H, Est GFR (MDRD) Af Amer 13 L, Est GFR (MDRD) Non-Af 11 L, BUN/Creatinine Ratio 8.4 L, Glucose 227 H, Calcium 8.5 12/03/20 04:56: Magnesium 1.8 Rhythm: Sinus rhythm Cardiac Cath: CONCLUSIONS Elevated Left Ventricular End Diastolic Pressure Elim Ira 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 The risks and benefits of the procedure as well as a full description of our services here and current unavailability of surgical backup were fully explained to the patient and/or their significant other prior to the catheterization. The Timeout was completed, verifying the correct patient and procedure. The patient's procedural site was prepped and draped in the usual fashion. Local anesthetic was given subcutaneously to right radial region with Lidocaine 2%. Using a modified Seldinger technique, arterial access was obtained via the right radial artery, a 6Fr sheath was inserted. Left Coronary Artery selective angiography was performed in multiple views using a 5 Fr. 4.0 [place] catheter. Right Coronary Artery selective angiography was then performed in multiple views using a 5 Fr. 4.0 [place] catheter. LV to AO pullback pressures were then recorded.The arterial sheath was pulled and a TR Band was applied for hemostasis CORONARY ANGIOGRAPHY DOMINANCE: Right Dominant LEFT HEART ASSESSMENT Left Ventricular Ejection Fraction: Not assessed Elevated Left Ventricular End Diastolic Pressure LVEDP: 16 mmHg LEFT MAIN: Mild calcification, distal: eccentric: 25 % Stenosis LEFT ANTERIOR DESCENDING ARTERY: OSTIAL LAD: Mild calcification, eccentric: 75 % Stenosis PROX LAD: Mild calcification, eccentric: 75 % Stenosis MID LAD: Mild luminal irregularities CIRCUMFLEX ARTERY: PROX CIRC: Mild calcification, long: diffuse: irregular: 85 % Stenosis OM 1: Proximal - long: diffuse: 85 % Stenosis, Mid - long: diffuse: 75 % Stenosis RIGHT CORONARY ARTERY: Mild calcification MID RCA: long: diffuse: 85 % Stenosis COLLATERAL FLOW: Collateral flow from Left to Left AORTIC ROOT: Calcified Aortic Arch: calcified COMPLICATIONS No Complications Radiography Diagnostic Testing: Radiology Impression Thoracentesis Ultrasound 12/02/20 15:02 IMPRESSION: Ultrasound-guided left thoracentesis. Electronically Signed: Nomi Parish MD at 8:21 EDT , Service support , Physical Exam Const alert, oriented x3 and no apparent distress Orientation / Consciousness: awake HEENT normocephalic, head/scalp atraumatic and hearing grossly normal bilaterally Eyes PERRL, EOMs intact bilaterally and conjunctivae normal Neck full ROM, supple and no JVD Resp Auscultation: diminished lung sounds left lower and upper Cardio regular rate, regular rhythm, S1 normal heart sound and S2 normal heart sound GI normal to inspection, nondistended, normoactive bowel sounds Extremity no pedal edema Peripheral Pulses: Yes radial pulses present right (No obvious bruit: No obvious hematoma) 2+ Skin no rashes or lesions noted Neuro oriented x3, moves all extremities, no focal motor deficits and no sensory defi cits noted Psych mental status grossly normal Assessment & Plan Assessment/Plan (1) Elevated troponin: PLAN: The patient has undergone evaluation with diagnostic cardiac catheterization. She appears to have diffuse multivessel disease-angiographically significant. She will need to continue medical therapy. She should be considered for further evaluation with CABG. (2) Pleural effusion: PLAN: The patient has a large left pleural effusion. It is concerning that it is mainly left-sided. Being left-sided this does raise concerns of noncardiovascular etiologies as well. She has undergone thoracentesis procedure. Based upon the pathology report there were no malignant cells reported. (3) HLD (hyperlipidemia): QUALIFIERS: Hyperlipidemia type: unspecified Qualified Code(s): E78.5 - Hyperlipidemia, unspecified PLAN: The patient should continue risk factor evaluation care as deemed appropriate. (4) HTN (hypertension), benign: PLAN: Her blood pressure can be followed with her medicines adjusted accordingly taking into consideration her renal insufficiency (5) DM2 (diabetes mellitus, type 2): PLAN: She will continue evaluation care per internal medicine. (6) ESRD (end stage renal disease) on dialysis: PLAN: She will continue evaluation care per internal medicine and nephro logy. (7) Hypokalemia: PLAN: Her electrolytes will need to be monitored and corrected. (8) Anemia: PLAN: There is a history of chronic anemia which may be related to her renal insufficiency. However she may need to be monitored for any obvious other etiologies that warrant further evaluation care. Addt'l Comments The patient's case was discussed and reviewed with the patient and her daughter- Dr. Cole. The patient's case was discussed with Dr. Olson of [facility] CT surgery. He agreed to accept the patient in transfer for further evaluation and care. This note was generated using a voice recognition system and there may be incorrect words, spelling or punctuation that were not noted when reviewing the office note prior to saving.
[2020-12-03] MEDS: Heparin Injection (Vial) 5,000 UNIT/ML VIAL 5000 UNIT SC (20:23)
[2020-12-03] MEDS: Atorvastatin Calcium 40 MG Tablet PO (20:24)
[2020-12-03 21:56] LABS: Bedside Glucose 193 mg/dL (70-110)
--- NOTE | 2020-12-03 22:43 | DIALYSIS ---
CCPD initiated at this time, initial drain only 3ml. PD cath site is clean and dry, dressing changed. Pt in first dwell at this time.
[2020-12-04] VITALS (13 sets, daily range): BP systolic 158–206; BP diastolic 47–63; PULSE 62–75; RESP 12–18; TEMP 36.7–36.9; O2SAT 95–98
[2020-12-04] MEDS: Insulin Lispro 100 UNIT/ML INSULN.PEN SC ×4 (06:32→21:26)
[2020-12-04 06:50] LABS: Bedside Glucose 197 mg/dL (70-110)
[2020-12-04 07:37] LABS: Absolute Lymphocyte Count 1.83 X10^3/uL (0.83-4.51); Absolute Neutrophil Count 5.6 X10^3/uL (2.0-7.7); Basophil# 0.09 X10^3/uL; Basophil% 1.1 % (0-1); Eosinophils% 3.5 % (0-5); Hematocrit 30.3 % (37-47); Hemoglobin 9.5 g/dL (12.0-15.0); Lymphocyte # 1.83 X10^3/ul (0.83-4.51); Lymphocyte % 21.6 % (19-41); Mean Corp Hgb Conc 31.4 g/dL (32-36); Mean Corpuscular Hgb 28.3 pg (27.0-32.0); Mean Corpuscular Volume 90.2 fL (81-99); Monocyte# 0.68 X10^3/uL; NRBC Flagged by Analyzer 0 % (0-5); Neutrophil # 5.56 X10^3/uL (2.7-7.7); Neutrophil % 65.4 % (47-70); Platelet Count 309 K/mm3 (150-450); RBC Distribution Width CV 16.8 % (11.6-14.6); RBC Distribution Width SD 53.9 fl (35.1-43.9); Red Blood Count 3.36 M/mm3 (4.2-5.4); White Blood Count 8.5 K/mm3 (4.4-11.0)
[2020-12-04] MEDS: Aspirin E.C. 81 MG Tablet PO (08:02)
[2020-12-04] MEDS: Ferrous Sulfate 325 MG Tablet PO (08:02)
[2020-12-04 08:03] LABS: Anion Gap 11 (5-15); BUN 34 mg/dL (7-18); BUN/Creat Ratio 7.8 RATIO (10-20); Calcium,Total 9.8 mg/dL (8.5-10.1); Chloride 107 mmol/L (98-107); Creatinine, Serum 4.37 mg/dL (0.55-1.02); EST Glomerular Filtration Rate 10 mL/min (>60); Est Glom Filt Rate - Afr Amer 12 mL/min (>60); Estimated Creatinine Clearance 8.65 ml/min; Glucose 220 mg/dL (74-106); Potassium 4.3 mmol/L (3.5-5.1); Sodium Level 143 mmol/L (136-145)
[2020-12-04] MEDS: Glucerna Shake 120 ML LIQUID PO ×3 (08:03→16:36)
--- NOTE | 2020-12-04 09:35 | DIALYSIS ---
CCPD tx completed upon arrival to bedside this AM. Pt denies any complications overnight. Fluid removed 1153ml. Vitals stable post tx. Tx discontinued using aseptic technique. Catheter capped, clamped, and secured to patient's abdomen. Effluent pale yellow color without fibrin. Verbal report given to RN Susannah post tx
[2020-12-04] MEDS: Calcitriol 0.25 MCG Capsule PO (09:40)
[2020-12-04] MEDS: Heparin Injection (Vial) 5,000 UNIT/ML VIAL 5000 UNIT SC ×2 (09:40→21:26)
[2020-12-04] MEDS: amLODIPine 5 MG Tablet PO (09:40)
[2020-12-04] MEDS: Carvedilol 3.125 MG TABLET PO (09:40)
[2020-12-04] MEDS: Lisinopril 40 MG Tablet PO (09:40)
[2020-12-04] MEDS: Spironolactone 50 MG Tablet PO (09:40)
[2020-12-04] MEDS: Furosemide 40 MG/4 ML Vial IV (09:40)
[2020-12-04] MEDS: Cholecalciferol (VIT D3) 25 MCG TABLET (1,000 UNITS) PO (09:40)
[2020-12-04] MEDS: Vitamin B Comp W-C Capsule 1 CAP PO (09:40)
[2020-12-04] MEDS: NIFEdipine 60 MG Tablet PO (09:40)
--- NOTE | 2020-12-04 10:02 | PN.CARD_ITS ---
Subjective Subjective The patient appears to be resting comfortably at this time. She is continuing her peritoneal dialysis. She has no acute complaints. Objective Data Vital Signs: Vital Signs Temp Pulse Resp BP Pulse Ox 98.3 F 68 16 197/55 H 96 12/04/20 09:20 12/04/20 09:38 12/04/20 09:20 12/04/20 09:38 12/04/20 09:20 Oxygen Flow Rate (L/min) 2 Oxygen Delivery Method [4] Room Air Oxygen Delivery Method [3] Room Air Oxygen Delivery Method [2] Room Air Oxygen Delivery Method [1 ( Room Air Initial Baseline)] Oxygen Delivery Method Room Air Weight: 123 lb 14.397 oz Body Mass Index (BMI) 25.0 Intake & Output: Intake and Output for Last 24 Hours 12/02/20 12/03/20 12/04/20 23:59 23:59 23:59 Intake Total 1160 / 1400 1200 / 1200 Output Total 2611 / 2611 Balance -1451 / -1211 1200 / 1200 Lab / Micro Data Result Diagrams: 12/04/20 06:15 12/04/20 06:15 Labs: Laboratory Results - last 24 hr 12/02/20 14:00: Fl Pathologist Comment Reviewed 12/03/20 11:48: POC Glucose 148 H 12/03/20 16:12: POC Glucose 172 H 12/03/20 20:22: POC Glucose 193 H 12/04/20 06:15: WBC 8.5, RBC 3.36 L, Hgb 9.5 L, Hct 30.3 L, MCV 90.2, MCH 28.3, MCHC 31.4 L, RDW Std Deviation 53.9 H, RDW Coeff of Nuha 16.8 H, Plt Count 309, MPV 11.0, Immature Gran % (Auto) 0.400, Neut % (Auto) 65.4, Lymph % (Auto) 21.6, [place] % (Auto) 8.0, Eos % (Auto) 3.5, Baso % (Auto) 1.1 H, Absolute Neuts (auto) 5.6, Absolute Lymphs (auto) 1.83, Nucleated RBC % 0 12/04/20 06:15: Sodium 143, Potassium 4.3, Chloride 107, Carbon Dioxide 25.0, Anion Gap 11, BUN 34 H, Creatinine 4.37 H, Estim Creat Clear Calc 8.65, Est GFR (MDRD) Af Amer 12 L, Est GFR (MDRD) Non-Af 10 L, BUN/Creatinine Ratio 7.8 L, Glucose 220 H, Calcium 9.8 12/04/20 06:31: POC Glucose 197 H Cardiology Labs/Tests 12/04/20 06:15: WBC 8.5, RBC 3.36 L, Hgb 9.5 L, Hct 30.3 L, MCV 90.2, MCH 28.3, MCHC 31.4 L, Plt Count 309, MPV 11.0, Immature Gran % (Auto) 0.400, Neut % (Auto) 65.4, Lymph % (Auto) 21.6, [place] % (Auto) 8.0, Eos % (Auto) 3.5, Baso % (Auto) 1.1 H, Absolute Neuts (auto) 5.6, Nucleated RBC % 0 12/04/20 06:15: Sodium 143, Potassium 4.3, Chloride 107, Carbon Dioxide 25.0, Anion Gap 11, BUN 34 H, Creatinine 4.37 H, Est GFR (MDRD) Af Amer 12 L, Est GFR (MDRD) Non-Af 10 L, BUN/Creatinine Ratio 7.8 L, Glucose 220 H, Calcium 9.8 Rhythm: Sinus rhythm Physical Exam Const alert, oriented x3 and no apparent distress Orientation / Consciousness: awake HEENT normocephalic, head/scalp atraumatic and hearing grossly normal bilaterally Eyes PERRL, EOMs intact bilaterally and conjunctivae normal Neck full ROM, supple and no JVD Resp Auscultation: diminished lung sounds left lower Cardio regular rate, regular rhythm, S1 normal heart sound and S2 normal heart sound GI normal to inspection, nondistended, normoactive bowel sounds Extremity no pedal edema Peripheral Pulses: Yes radial pulses present right 2+ Skin no rashes or lesions noted Neuro oriented x3, moves all extremities, no focal motor deficits and no sensory deficits noted Psych mental status grossly normal Assessment & Plan Assessment/Plan (1) Elevated troponin: PLAN: The patient has undergone evaluation with diagnostic cardiac catheterization. She appears to have diffuse multivessel disease-angiographically significant. She will need to continue medical therapy. She has been recommended for further evaluation with CABG. Her case was discussed with Dr. Olson at [facility] CT surgery. He agreed to accept the patient in transfer for further evaluation and care. (2) Pleural effusion: PLAN: The patient has a large left pleural effusion. It is concerning that it is mainly left-sided. Being left-sided this does raise concerns of noncardiovascular etiologies as well. She has undergone thoracentesis procedure. Based upon the pathology report there were no malignant cells reported. (3) HLD (hyperlipidemia): QUALIFIERS: Hyperlipidemia type: unspecified Qualified Code(s): E78.5 - Hyperlipidemia, unspecified PLAN: The patient should continue risk factor evaluation care as deemed appropriate. (4) HTN (hypertension), benign: PLAN: Her blood pressure can be followed with her medicines adjusted accordingly taking into consideration her renal insufficiency (5) DM2 (diabetes mellitus, type 2): PLAN: She will continue evaluation care per internal medicine. (6) ESRD (end stage renal disease) on dialysis: PLAN: She will continue evaluation care per internal medicine and nephrology. (7) Hypokalemia: PLAN: Her electrolytes will need to be monitored and corrected. (8) Anemia: PLAN: There is a history of chronic anemia which may be related to her renal insufficiency. However she may need to be monitored for any obvious other etiologies that warrant further evaluation care. Addt'l Comments As previously noted, the patient's case was also discussed with her daughter Dr. Daniela Cole. This note was generated using a voice recognition system and there may be incorrect words, spelling or punctuation that were not noted when reviewing the office note prior to saving.
[2020-12-04 12:01] LABS: Bedside Glucose 155 mg/dL (70-110)
--- NOTE | 2020-12-04 12:35 | PCM.PN.BLA ---
Progress Note tolerated PD last night with 1153cc fluid removal. Vitals stable. labs reviewed.
--- NOTE | 2020-12-04 15:31 | PN.HOSP_ITS ---
Subjective Subjective Feels well. No shortness of breath. No chest pain. Objective Data Objective Data Vital Signs: Vital Signs Temp Pulse Resp BP Pulse Ox 36.9 C 72 16 206/63 H 96 12/04/20 15:08 12/04/20 15:08 12/04/20 15:08 12/04/20 15:08 12/04/20 15:08 Oxygen Flow Rate (L/min) 2 Oxygen Delivery Method [4] Room Air Oxygen Delivery Method [3] Room Air Oxygen Delivery Method [2] Room Air Oxygen Delivery Method [1 ( Room Air Initial Baseline)] Oxygen Delivery Method Room Air Weight: 56.2 kg Body Mass Index (BMI) 25.0 Intake & Output: Intake and Output for Last 24 Hours 12/02/20 12/03/20 12/04/20 23:59 23:59 23:59 Intake Total 1160 / 1400 1200 / 1200 380 / 380 Output Total 2611 / 2611 1153 / 1153 Balance -1451 / -1211 1200 / 1200 -773 / -773 Lab / Micro Data Result Diagrams: 12/04/20 06:15 12/04/20 06:15 Labs: Laboratory Results - last 24 hr 12/03/20 16:12: POC Glucose 172 H 12/03/20 20:22: POC Glucose 193 H 12/04/20 06:15: WBC 8.5, RBC 3.36 L, Hgb 9.5 L, Hct 30.3 L, MCV 90.2, MCH 28.3, MCHC 31.4 L, RDW Std Deviation 53.9 H, RDW Coeff of Nuha 16.8 H, Plt Count 309, MPV 11.0, Immature Gran % (Auto) 0.400, Neut % (Auto) 65.4, Lymph % (Auto) 21.6, [place] % (Auto) 8.0, Eos % (Auto) 3.5, Baso % (Auto) 1.1 H, Absolute Neuts (auto) 5.6, Absolute Lymphs (auto) 1.83, Nucleated RBC % 0 12/04/20 06:15: Sodium 143, Potassium 4.3, Chloride 107, Carbon Dioxide 25.0, Anion Gap 11, BUN 34 H, Creatinine 4.37 H, Estim Creat Clear Calc 8.65, Est GFR (MDRD) Af Amer 12 L, Est GFR (MDRD) Non-Af 10 L, BUN/Creatinine Ratio 7.8 L, Glucose 220 H, Calcium 9.8 12/04/20 06:31: POC Glucose 197 H 12/04/20 11:41: POC Glucose 155 H Micro: Microbiology 11/30/20 11:50 Stool Enteric Bacteriology - Final 11/30/20 11:50 Stool C. difficile DNA Amplification - Final Physical Exam Const alert Resp normal respiratory effort and no retractions Resp Narrative: basilar crackles. 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 1. Acute HFrEF * EF 45% * complicated by ESRD and moderate pulmonary HTN * on IV furosemide * continue lisinopril,carvedilol * no prior echo available. * pt has never seen tobacco shaker before (Dr. Martinez was contact through [facility] and advised transfer and possible LHC) * cardiology on consult 2. NSTEMI * trops slightly elevated, but may be skewed by ESRD * reviewed records from [facility], no prior cardiac work up, she has never seen a tobacco shaker before. * LHC today showed multivessel disease (LAD 75% stenosis, Circ 85%, RCA 85%). Dr. Erazo notified her dtr. Impending transfer to [facility]. * Continue carvedilol, HIS, ASA 3. Pleural effusion * reviewed records from [facility], have been present since May, but noted to be bigger. No disc available to review. Will check CXR here * thoracentesis performed 12/02: Transudative. 750cc fluid removed. 4. ESRD * on PD * nephrology on consult 5. Diarrhea * chronic * intermittent. ?IBS? * Cdiff, enteric panel negative * add loperamide 6. Hypokalemia * replace * monitor 7. Anemia of chronic disease * likely stable * no need for TF at this time 8. VTE propylaxis: SQ heparin 9. HTN urgency: * increase amlodipine to 10, from 5 * increase carvedilol * continue lisinopril * DC nifedipine since it is a dihydropyridine CCB (same as amlodipine) Charges/Coding Visit Charges Inpatient E&M: 48684 Subs Hosp L2
[2020-12-04] MEDS: hydrALAZINE 20 MG/ML Vial 10 MG IV (15:56)
[2020-12-04 16:46] LABS: Bedside Glucose 182 mg/dL (70-110)
--- NOTE | 2020-12-04 16:59 | DS.PCM_ITS ---
Providers Date of Admission: 11/30/20 Primary Care Physician: Miguel Castillo Consultations 11/30/20 03:34 Consult: Nephrology Routine Consulting Provider: Kamini Thomason Reason for Consult: ESRD on PD, transfer from [facility], admit w/ CHF Exac EMERGENT Consult: No Notified: Yes Date Notified: 11/30/20 Time Notified: 05:41 Method of Notification: Text Method of Consult:: In-Person 12/01/20 08:25 Consult: Cardiology Routine Consulting Provider: Paolo Erazo Reason for Consult: cardiomyopathy EMERGENT Consult: No Notified: Yes Date Notified: 12/01/20 Time Notified: 08:25 Method of Notification: Verbal Reason For Visit: CHF EXACERBATION, ELEVATED TROPONIN Diagnosis Discharge Diagnosis (1) CHF exacerbation: Status: Chronic Code(s): I50.9 - Heart failure, unspecified Qualifiers: Heart failure type: unspecified Qualified Code(s): I50.9 - Heart failure, unspecified (2) Elevated troponin: Status: Acute Code(s): R77.8 - Other specified abnormalities of plasma proteins Medications at Discharge Home Medications B complex-vitamin C-folic acid [Holly-Danny] 1 tab PO DAILY 11/30/20 Lipitor 40 mg PO/SL DAILY 11/30/20 Tougiselleo SoloStar U-300 Insulin 14 units DAILY 11/30/20 amlodipine 5 mg PO DAILY 11/30/20 calcitriol 0.25 mcg PO DAILY 11/30/20 cholecalciferol (vitamin D3) [Vitamin D3] 25 mcg PO DAILY 11/30/20 ferrous sulfate 325 mg PO/SL DAILY 11/30/20 nifedipine 60 mg PO/SL DAILY 11/30/20 quinapril 40 mg PO/SL DAILY 11/30/20 sodium bicarbonate 1,300 mg PO BID 11/30/20 spironolactone 50 mg PO DAILY 11/30/20 torsemide 10 mg PO DAILY 11/30/20 Hospital Course Summary of Care Provided Minutes Spent on Discharge: 32 Hospital Course: Patient transferred from [facility] with shortness of breath. Patient found to have large pleural effusion. Patient also found to have reduced ejection fraction. Patient underwent thoracentesis as well as left heart catheterization. 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 Decision from cardiology was to transfer the patient to a tertiary facility. Dr. Erazo reached out to [facility] and the patient was accepted over there. Patient was discharged on December 04. 1. Acute HFrEF EF 45% complicated by ESRD and moderate pulmonary HTN on IV furosemide continue lisinopril,carvedilol no prior echo available. pt has never seen superintendent menagerie before (Dr. Martinez was contact through [facility] and advised transfer and possible LHC) cardiology on consult 2. NSTEMI trops slightly elevated, but may be skewed by ESRD reviewed records from [facility], no prior cardiac work up, she has never seen a superintendent menagerie before. 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 Dr. Erazo notified her dtr. Impending transfer to [facility]. Continue carvedilol, HIS, ASA 3. Pleural effusion reviewed records from [facility], have been present since May, but noted to be bigger. No disc available to review. Will check CXR here thoracentesis performed 12/02: Transudative. 750cc fluid removed. 4. ESRD on PD nephrology on consult 5. Diarrhea chronic intermittent. ?IBS? Cdiff, enteric panel negative add loperamide 6. Hypokalemia replace monitor 7. Anemia of chronic disease likely stable no need for TF at this time 8. VTE propylaxis: SQ heparin 9. HTN urgency: increase amlodipine to 10, from 5 increase carvedilol continue lisinopril DC nifedipine since it is a dihydropyridine CCB (same as amlodipine) Weight / BMI Weight Weight: 56.2 kg Body Mass Index (BMI) 25.0 ABG / Lab / Microbiology Data Result Diagrams: 12/04/20 06:15 12/04/20 06:15 Microbiology: Microbiology 11/30/20 11:50 Stool Enteric Bacteriology - Final 11/30/20 11:50 Stool C. difficile DNA Amplification - Final Meaningful Use Info Meaningful Use Diagnoses (Choose all that apply): CHF CHF DIGNA/ARB ordered at discharge?: No Reason DIGNA/ARB not ordered?: Worsening renal disease Documented LVEF (%): 45 Discharge Plan Admission Admit Date/Time: 11/30/20 03:34 Primary Reason for Your Visit: CHF. pleural effusion Attending Provider: Shaka Solitario Consulting Providers: Kamini Thomason ; Paolo Erazo Instructions Patient Instructions: Thoracentesis Dc Discharge Orders/Prescriptions Prescriptions: No Action Lipitor 40 mg PO/SL DAILY RF: 0 Toujeo SoloStar U-300 Insulin 14 units DAILY RF: 0 ferrous sulfate 325 mg PO/SL DAILY RF: 0 nifedipine 60 mg PO/SL DAILY RF: 0 quinapril 40 mg PO/SL DAILY RF: 0 torsemide 10 mg tablet 10 mg PO DAILY RF: 0 amlodipine 5 mg tablet 5 mg PO DAILY RF: 0 Holly-Danny 0.8 mg tablet 1 tab PO DAILY RF: 0 calcitriol 0.25 mcg capsule 0.25 mcg PO DAILY RF: 0 sodium bicarbonate 650 mg tablet 1,300 mg PO BID RF: 0 spironolactone 50 mg tablet 50 mg PO DAILY RF: 0 cholecalciferol (vitamin D3) [Vitamin D3] 25 mcg (1,000 unit) Capsule 25 mcg PO DAILY RF: 0 Referrals / Follow Up: Miguel Castillo [Other] Disposition Discharge Orders: Discharge Patient (Routine); Ordered 12/03/20 Ordered By: Dr. Paolo Erazo Charges/Coding Visit Charges Inpatient E&M: [id number] Disch Hosp
[2020-12-04] MEDS: Carvedilol 6.25 MG Tablet PO (21:26)
[2020-12-04] MEDS: Atorvastatin Calcium 40 MG Tablet PO (21:26)
[2020-12-04 22:25] LABS: Bedside Glucose 190 mg/dL (70-110)
== END 2020-12-04 22:50 | disposition home or self-care (01) | DRG 280 ==
PROVIDERS: Hospitalist; Internal Medicine Cardiovascular Disease; Internal Medicine Nephrology; Admitting Provider Family Medicine
DX: I13.2 Hypertensive heart and chronic kidney disease with heart failure and with stage 5 chronic kidney disease, or end stage renal disease (principal); I21.4 Non-ST elevation (NSTEMI) myocardial infarction; I50.21 Acute systolic (congestive) heart failure; N18.6 End stage renal disease; Q27.30 Arteriovenous malformation, site unspecified; J90 Pleural effusion, not elsewhere classified; E11.22 Type 2 diabetes mellitus with diabetic chronic kidney disease; D63.8 Anemia in other chronic diseases classified elsewhere; D50.9 Iron deficiency anemia, unspecified; E78.5 Hyperlipidemia, unspecified; E87.6 Hypokalemia; K52.9 Noninfective gastroenteritis and colitis, unspecified; I16.0 Hypertensive urgency; I25.10 Atherosclerotic heart disease of native coronary artery without angina pectoris; I27.20 Pulmonary hypertension, unspecified; K21.9 Gastro-esophageal reflux disease without esophagitis; M81.0 Age-related osteoporosis without current pathological fracture; Z87.891 Personal history of nicotine dependence; Z99.2 Dependence on renal dialysis; Z87.19 Personal history of other diseases of the digestive system; Z79.899 Other long term (current) drug therapy
CPT/HCPCS: 32555; 36415; 71045; 71046; 80048; 80053; 80061; 80069; 82945; 82962; 83615; 83735; 84100; 84439; 84443; 84484; 85025; 85610; 87493; 87506; 88108; 88305; 88313; 89050; 90937; 90947; 93005; 93306; 93454; 97802; 99152; 99153; J7040; Q9967; A4216; C1769; C1894; G0257; J1940